=== PATIENT | female | born 1970 | race Caucasian/White ===

== ENCOUNTER 2020-07-11 11:40 | Observation (INO) | payer SELFPAY ==
[2020-07-11 11:45] VITALS: BP 131/82; PULSE 70; RESP 15; O2SAT 100; BMI 24.3
--- NOTE | 2020-07-11 13:29 | XR_ITS ---
WS: [id number] XR chest 1V portable [id number] REASON FOR EXAM: muscle cramps FINDINGS: Mild tortuosity of the thoracic aorta. Normal heart size. Calcified granulomatous disease in both hemithoraces. No active pulmonary parenchymal or pleural disease. Mild to moderate changes of degenerative spondylosis in the mid and lower thoracic spine. Dorsal colu mn stimulator at the midthoracic level. XR/XR chest 1V portable [id number] IMPRESSION:No acute chest abnormality.
--- NOTE | 2020-07-11 13:31 | ED_ITS ---
HPI - General Adult General: Chief complaint: General Medical Stated complaint: NOT FEELING WELL / MUSCLE CRAMPING Time Seen by Provider: 07/11/20 12:22 Source: patient and EMS Mode of arrival: EMS Limitations: no limitations History of Present Illness: HPI narrative: Patient is a 50-year-old female who was brought in by EMS. EMS was called and by law enforcement to evaluate this lady. She is from out of town and followed her girlfriend here. She is apparently homeless and came here from [place]. She was found sleeping in an abandoned car at the [facility]. She feels she is dehydrated. She has not been drinking water as much as she should. She is also feeling a little depressed but denies suicidal or homicidal ideation. She denies a fever. No urinary symptoms Associated symptoms: Deny dyspnea, headache(s), nausea, rash, palpitations or vomiting Review of Systems General: Reports: 10 or more systems reviewed and unremarkable except in HPI and below Const: Denies: fever(s), chills or body aches Eyes: Denies: change in vision or blurry vision ENMT: Denies: throat pain, enlarged tonsils, odynophagia, hoarseness, mouth pain or swelling of lips/tongue Card: Denies: palpitations, irregular heart rhythm, edema or swelling of feet/ankles Resp: Denies: dyspnea, productive cough or non-productive cough GI: Denies: abdominal pain, nausea or vomiting : Denies: flank pain, difficulty voiding, dysuria, urinary frequency, urinary urgency or urinary hesitancy Musc: Denies: neck pain, back pain or extremity swelling Skin/Breast: Denies: rash, pruritus or erythema Neuro: Denies: headache(s), numbness in extremities or weakness in extremities Endo: Denies: polyuria, polydipsia or tired all the time Physical Exam Const: COMMON NORMALS: no acute distress, average body habitus, patient oriented x3, no limitations, healthy appearing, alert and well nourished HENMT: COMMON NORMALS: normocephalic, atraumatic and moist oral mucous membranes HEAD & SCALP: normocephalic and atraumatic Neck/C-Spine: COMMON NORMALS: no meningeal signs and no JVD Resp: COMMON NORMALS: normal respiratory effort, No retractions, No use of accessory muscles, clear to auscultation bilaterally and percussion normal AUSCULTATION: clear to auscultation bilaterally PERCUSSION: percussion normal Cardio: COMMON NORMALS: no JVD, regular rate, regular rhythm, S1 normal heart sound present, S2 normal heart sound present, No gallops present (Cardio), No clicks present (Cardio), No murmurs present (Cardio), No rub (Cardio) and Peripheral pulses 2+ throughout RATE: regular rate RHYTHM: regular rhythm HEART SOUNDS: S1 normal heart sound present and S2 normal heart sound present PERIPHERAL PULSES: Peripheral pulses 2+ throughout GI: COMMON NORMALS: Normal to inspection, nondistended, normoactive bowel sounds present, Soft to palpation, non-tender, No hepatosplenomegaly present, no masses and no bruits PALPATION: Yes Soft to palpation and Yes No hepatosplenomegaly present Extremity: COMMON NORMALS: normal to inspection, full ROM, capillary refill normal, no calf tenderness and no pedal edema Neuro: COMMON NORMALS: patient oriented x3 SENSORIUM/ORIENTATION: Yes alert MENINGEAL SIGNS: Yes no meningeal signs Skin: COMMON NORMALS: no rashes or lesions noted, no wounds, turgor normal, no jaundice, no petechiae and no mottling GENERAL SKIN EXAM: no rashes or lesions noted and turgor normal Course Reevaluation(s): Reevaluation #1: Discussed her lab and imaging findings with her. Negative for acute findings other than mild rhabdomyolysis. She was given a liter of saline and will be discharged home. She is advised to drink plenty of fluids to keep well-hydrated. She then said that she wants a psych evaluation. When i asked why she declined to tell me, but denies suicidal or homicidal ideation. She mentioned that she is homeless and would like to be admitted to psych. Time: 17:54 Consultations: Consultation #1: Discussed the patient with Dr. Andre and he kindly accepted the patient to his service. Time: 18:04 Vital Signs: Vital signs: Vital Signs Temperature 98.0 F 07/12/20 06:00 Pulse Rate 70 07/12/20 06:00 Respiratory Rate 18 07/12/20 06:00 Blood Pressure 129/77 07/12/20 06:00 Pulse Oximetry 95 07/12/20 06:00 MDM - General Adult MDM Narrative: Medical decision making narrative: 50-year-old female patient who presents to the emergency department with nonspecific symptoms including muscle cramping and depression. Evaluation in the emergency department shows she has mild rhabdomyolysis. She however requested to be admitted to the [facility] for evaluation by psychiatrist. After discussion with the psychiatrist he agreed to admit her for evaluation but he advised that she will likely be discharged tomorrow Medical Records: Attestation: I reviewed the patient's medical records. Lab Data: Attestation: I reviewed the patient's lab results. Labs: Lab Results 07/11/20 07/11/20 07/11/20 Range/Units 14:20 14:20 14:20 WBC 10.8 H (4.0-10.0) 10^3/ uL RBC 3.82 L (4.1-5.3) 10^6/u L Hgb 11.8 (11.5-15.3) g/dL Hct 36.8 L (37.0-47.0) % MCV 96.3 (81-99) fL MCH 30.9 (28.0-34.0) pg MCHC 32.1 (30.0-36.0) g/dL RDW 12.8 (12.1-15.1) % Plt Count 291 (130-400) 10^3/c mm MPV 9.7 (7.4-10.4) fL Neut % (Auto) 72.8 % Lymph % (Auto) 19.9 % Dickenson % (Auto) 6.0 % Eos % (Auto) 0.6 % Baso % (Auto) 0.4 % Neut # (Auto) 7.89 H (1.8-7.7) 10^3/u L Lymph # (Auto) 2.2 (0.8-4.8) 10^3/u L Dickenson # (Auto) 0.7 (0.2-0.9) 10^3/u L Eos # (Auto) 0.1 (0.0-0.8) 10^3/u L Baso # (Auto) 0.0 (0.0-0.1) 10^3/u L Nucleated RBC % (a uto) 0 % Nucleated RBCs # 0.0 /100WBC Sodium 142 (136-145) mmol/L Potassium 3.4 L (3.5-5.1) mmol/L Chloride 103 (98-107) mmol/L Carbon Dioxide 24 (22-29) mmol/L Anion Gap 18.4 (5-19) BUN 11 (6-20) mg/dL Creatinine 0.6 (0.5-0.9) mg/dL GFR Calculation 105.8 (90-130) mL/min Glucose 88 (65-115) mg/dL Calculated Osmolal ity 293 (285-295) mOsm/k g Calcium 9.5 (8.5-10.5) mg/dL Total Bilirubin 0.5 (0.15-1.2) mg/dL AST 21 (0-32) U/L ALT 15 (0-33) U/L Alkaline Phosphata se 83 (35-105) IU/L Creatine Kinase 255 H (26-192) U/L C-Reactive Protein 8.3 H (0.0-4.9) mg/L Total Protein 6.7 (6.6-8.7) g/dL Albumin 4.3 (3.5-5.2) g/dL Globulin 2.4 (1.3-4.6) g/dL TSH 0.58 (0.27-4.20) uIU/ mL HCG, Qual Negative (Negative) Urine Opiates Scre en (Negative) ng/mL Acetaminophen < 5.0 L (10-30) ug/mL Ur Barbiturates Sc reen (Negative) ng/mL Ur Phencyclidine S crn (Negative) ng/mL Ur Amphetamines Sc reen (Negative) ng/mL U Benzodiazepines Scrn (Negative) ng/mL Urine Cocaine Scre en (Negative) ng/mL U Marijuana (THC) Screen (Negative) ng/mL Ethyl Alcohol < 10 (0-10) mg/dL 07/11/20 07/11/20 Range/Units 14:44 14:44 WBC (4.0-10.0) 10^3/ uL RBC (4.1-5.3) 10^6/u L Hgb (11.5-15.3) g/dL Hct (37.0-47.0) % MCV (81-99) fL MCH (28.0-34.0) pg MCHC (30.0-36.0) g/dL RDW (12.1-15.1) % Plt Count (130-400) 10^3/c mm MPV (7.4-10.4) fL Neut % (Auto) % Lymph % (Auto) % Dickenson % (Auto) % Eos % (Auto) % Baso % (Auto) % Neut # (Auto) (1.8-7.7) 10^3/u L Lymph # (Auto) (0.8-4.8) 10^3/u L Dickenson # (Auto) (0.2-0.9) 10^3/u L Eos # (Auto) (0.0-0.8) 10^3/u L Baso # (Auto) (0.0-0.1) 10^3/u L Nucleated RBC % (a uto) % Nucleated RBCs # /100WBC Sodium (136-145) mmol/L Potassium (3.5-5.1) mmol/L Chloride (98-107) mmol/L Carbon Dioxide (22-29) mmol/L Anion Gap (5-19) BUN (6-20) mg/dL Creatinine (0.5-0.9) mg/dL GFR Calculation (90-130) mL/min Glucose (65-115) mg/dL Calculated Osmolal ity (285-295) mOsm/k g Calcium (8.5-10.5) mg/dL Total Bilirubin (0.15-1.2) mg/dL AST (0-32) U/L ALT (0-33) U/L Alkaline Phosphata se (35-105) IU/L Creatine Kinase (26-192) U/L C-Reactive Protein (0.0-4.9) mg/L Total Protein (6.6-8.7) g/dL Albumin (3.5-5.2) g/dL Globulin (1.3-4.6) g/dL TSH (0.27-4.20) uIU/ mL HCG, Qual Negative (Negative) Urine Opiates Scre en Negative (Negative) ng/mL Acetaminophen (10-30) ug/mL Ur Barbiturates Sc reen Negative (Negative) ng/mL Ur Phencyclidine S crn Negative (Negative) ng/mL Ur Amphetamines Sc reen Negative (Negative) ng/mL U Benzodiazepines Scrn Negative (Negative) ng/mL Urine Cocaine Scre en Negative (Negative) ng/mL U Marijuana (THC) Screen Negative (Negative) ng/mL Ethyl Alcohol (0-10) mg/dL Imaging Data^: CXR: Attestation: I personally reviewed and interpreted this imaging study as follows: Radiologist's impression: [address] [place] [address] XRay Report Signed Patient: [place] NÚÑEZ #: [id number] : 1970Acct#:[id number] Age/Sex: 50 / FADM Date: 07/11/20 Loc: ERRoom/Bed: Attending Dr: Ordering Provider/Ordering MD: Ranulfo Lopez MD, [facility] [place] [facility] [place] of Service: 07/11/20 Procedure(s): XR chest 1V portable [id number] Accession Number(s): [id number] Report Number: [id number] WS: [id number] XR chest 1V portable [id number] REASON FOR EXAM: muscle cramps FINDINGS: Mild tortuosity of the thoracic aorta. Normal heart size. Calcified granulomatous disease in both hemithoraces. No active pulmonary parenchymal or pleural disease. Mild to moderate changes of degenerative spondylosis in the mid and lower thoracic spine. Dorsal column stimulator at the midthoracic level. XR/XR chest 1V portable [id number] IMPRESSION:No acute chest abnormality. Dictated By:Maximo Saini Jr, MD Signed By:Maximo Saini Jr MDSigned Date/Time:07/11/20 135 DD/ 135 Discharge Plan Discharge Patient Disposition: Admitted As Inpatient Admit Provider: Madan Andre Clinical Impression: Adjustment disorder with anxiety, Psychosocial distress, Homeless, Rhabdomyolysis Condition: Stable Coding Level of Care Code ED Network Support Specialist for Chg Fwd Exam Comprehensive
[2020-07-11 14:41] LABS: Basophils % 0.4 %; Eosinophils # 0.1 10^3/uL (0.0-0.8); Eosinophils % 0.6 %; Hematocrit 36.8 % (37.0-47.0); Hemoglobin 11.8 g/dL (11.5-15.3); Lymphocytes # 2.2 10^3/uL (0.8-4.8); Lymphocytes % 19.9 %; Mean Corpuscular HGB Conc 32.1 g/dL (30.0-36.0); Mean Corpuscular Hemoglobin 30.9 pg (28.0-34.0); Mean Corpuscular Volume 96.3 fL (81-99); Mean Platelet Volume 9.7 fL (7.4-10.4); Monocytes # 0.7 10^3/uL (0.2-0.9); Neutrophils # 7.89 10^3/uL (1.8-7.7); Neutrophils % 72.8 %; Nucleated Red Blood Cells % 0 %; Platelet Count 291 10^3/cmm (130-400); Red Blood Count 3.82 10^6/uL (4.1-5.3); Red Cell Distribution Width 12.8 % (12.1-15.1); White Blood Count 10.8 10^3/uL (4.0-10.0)
[2020-07-11 14:50] LABS: HCG, Serum Qual Negative (Negative)
[2020-07-11 14:50] LABS: HCG Qualitative Urine. Negative (Negative)
[2020-07-11 15:03] LABS: Amphetamines Screen Urine Negative (Negative); Barbiturates Screen Urine Negative (Negative); Benzodiazepines Screen Urine Negative (Negative); Cocaine Screen Urine Negative (Negative); Opiate Screen Urine Negative (Negative); PCP Screen Urine Negative (Negative); THC Screen Urine Negative (Negative)
[2020-07-11 15:07] LABS: Alanine Aminotransferase 15 U/L (0-33); Albumin Level 4.3 g/dL (3.5-5.2); Alkaline Phosphatase 83 IU/L (35-105); Anion Gap 18.4 (5-19); Aspartate Amino Transferase 21 U/L (0-32); Blood Urea Nitrogen 11 mg/dL (6-20); C Reactive Protein 8.3 mg/L (0.0-4.9); Calcium 9.5 mg/dL (8.5-10.5); Carbon Dioxide 24 mmol/L (22-29); Chloride 103 mmol/L (98-107); Creatine Phosphokinase 255 U/L (26-192); Creatinine Clr Calc Pharmacy 115.2508; Globulin 2.4 g/dL (1.3-4.6); Glomerular Filtration Rate 105.8 mL/min (90-130); Glucose 88 mg/dL (65-115); Osmolality Calculated 293 mOsm/kg (285-295); Potassium 3.4 mmol/L (3.5-5.1); Sodium 142 mmol/L (136-145); Thyroid Stimulating Hormone 0.58 uIU/mL (0.27-4.20); Total Bilirubin 0.5 mg/dL (0.15-1.2); Total Protein 6.7 g/dL (6.6-8.7)
[2020-07-11 15:16] LABS: Acetaminophen < 5.0 ug/mL (10-30); Alcohol Level < 10 mg/dL (0-10)
[2020-07-11] MEDS: sodium chloride 0.9% 1,000 ML 999 ML IV (16:06)
[2020-07-11 19:13] VITALS: BP 133/75; PULSE 70; RESP 15; O2SAT 100
[2020-07-11 20:35] VITALS: BP 118/82; PULSE 85; RESP 18; TEMP 36.8; O2SAT 93
[2020-07-11] MEDS: pregabalin 150 mg Capsule PO (22:08)
[2020-07-11] MEDS: TRAMadol 50 mg Tablet PO (22:08)
--- NOTE | 2020-07-11 22:15 | PC.NURSE ---
Patient is a 50-year-old female who was brought in by EMS. EMS was called and by law enforcement to evaluate this lady. She is from out of town and followed her girlfriend here. She is apparently homeless and came here from [place]. She was found sleeping in an abandoned car at the [employer].She feels she is dehydrated. She has not been drinking water as much as she should. She is also feeling a little depressed but denies suicidal or homicidal ideation.
[2020-07-12 06:00] VITALS: BP 129/77; PULSE 70; RESP 18; TEMP 36.7; O2SAT 95
[2020-07-12] MEDS: FUROsemide 20 mg Tablet PO (07:39)
[2020-07-12] MEDS: pregabalin 150 mg Capsule PO ×3 (07:40→20:21)
[2020-07-12] MEDS: duloxetine 60 mg Capsule 120 MG PO (07:40)
--- NOTE | 2020-07-12 08:16 | P.HP_ITS ---
Providers/Chief Complaint Admitting Physician: aMdan Andre MD Chief Complaint: NOT FEELING WELL / MUSCLE CRAMPING HPI NPU History of Present Illness ANTONIETTA NÚÑEZ is a 50 year old female who was brought to the emergency room by police. We have no documentation of what exactly occurred. According to the bijal hodge, she was sleeping in her car at a gas station where she was told she could do that. Through a very confusing series of events, her car was towed, her purse was in her car, her phone was in her car, and the police brought her to the emergency room for unclear reasons. She denies suicidal or homicidal ideation. She says that she is treated for stress and anxiety and is having muscle cramping. Otherwise she is negative for symptoms of depression or psychosis. Oh, can I get my Adderall? Patient's urine drug screen was negative for amphetamines. ER physician documentation: Patient is a 50-year-old female who was brought in by EMS. EMS was called and by law enforcement to evaluate this lady. She is from out of town and followed her girlfriend here. She is apparently homeless and came here from [place]. She was found sleeping in an abandoned car at the a gas station. She feels she is dehydrated. She has not been drinking water as much as she should. She is also feeling a little depressed but denies suicidal or homicidal ideation. She denies a fever. No urinary symptoms Past psychiatric history: It should be noted that the patient is not a reliable informant and we have no records on her. She says that she has been hospitalized twice for mental health reasons in her life. The last was 2 weeks ago in [facility]. She was hospitalized for stress, anxiety, and burnout. She has been treated for depression with Cymbalta for several years and it is helpful. She denies side effects and wants to continue this medication. Please see mental status exam below. Social history: Patient is incredibly vague. She answers questions but the answers are of minimal help. She is from [facility]. She first says she works at a [employer] shop and then she says she is disabled for spine and back problems. She has family in [facility] but they cannot help her in this situation so she does not feel there is any point in contacting them. She was going to visit friends here in the [place] area but she cannot remember their phone number and cannot seem to recall the names. Review of Systems Narrative: Review of Systems Constitutional: Complains of: Fatigue Eyes: Complains of: No eye symptoms ENT/Mouth: Complains of: No ENTM symptoms Cardiovascular: Complains of: No cardiac symptoms Respiratory: Complains of: No respiratory symptoms GI: Complains of: No GI symptoms Neuro: Complains of: No neuro symptoms Musculoskeletal: Complains of: Patient has vague complaint of muscle cramping but can be no more specific. Skin: Complains of: No skin symptoms Hematologic/Lymphatic: Complains of: No hematologic/lymphatic symptoms Endocrine: Complains of: No endocrine symptoms : Complains of: No symptoms Psych: Denies: Depression, Suicide ideation Meds NPU Home Medications Medication Instructions Recorded Confirmed Last Taken Type baclofen 20 mg PO QID PRN 07/11/20 07/11/20 Unknown History dextroamphetamine-amphetamine 15 mg PO .@NOON 07/11/20 07/11/20 07/09/20 History dextroamphetamine-amphetamine 20 mg PO QAM 07/11/20 07/11/20 07/09/20 History duloxetine 120 mg PO DAILY 07/11/20 07/11/20 Unknown History furosemide See Rx Instructions .ROUTE .COMPLEX 07/11/20 07/11/20 Unknown History ibuprofen 800 mg PO TID PRN 07/11/20 07/11/20 Unknown History olanzapine 2.5 mg PO BEDTIME 07/11/20 07/11/20 07/09/20 History pregabalin 150 mg PO TID 07/11/20 07/11/20 Unknown History sumatriptan succinate 25 mg PO PRN 07/11/20 07/11/20 Unknown History tramadol 50 mg PO Q6H PRN 07/11/20 07/11/20 07/09/20 History Allergies Allergy/AdvReac Type Severity Reaction Status Date / Time cephalexin [From Keflex] Allergy ALGY-Hives Verified 07/11/20 14:23 Penicillins Allergy ALGY-Hives Verified 07/11/20 14:23 Mental Status Exam MSE Comments: Discharge Mental Status Exam: The patient is an alert interperso nisha gauged female appearing approximately her stated age. She is holding her right arm as though. It is painful but makes no specific complaint. Eye contact is good. She is not believed to be a reliable informant. She is guarded but not paranoid. She gives largely approximate answers that she knows cannot be verified at this time. Her story is somewhat illogical but then the whole series of events that we can verify is difficult to understand. Appearance: hygiene is good; no gross neurological deficits., gait is unremarkable; AIMS=0 Speech: Speech is of normal rate and rhythm and easily understood. She speaks in complete sentences. She has good command of vocabulary. Thought processes: Thought processes are abstract. Judgment is adequate for safety. Associations: intact Psychotic processes: There is no indication of guarding or paranoia. There is no attention to the internal stimuli. Auditory and visual hallucinations are denied. Judgment: Insight is fair. Problem solving skills are adequate for safety. Orientation: The patient is oriented to person, place time and situation. Memory: no deficits noted in immediate, intermediate, or remote spheres. Attention: The patient is alert and interpersonally engaged. Language: Verbalizations are coherent. Fund of knowledge: Fund of knowledge is adequate. Affect/Mood: Affect is consistent with a euthymic mood. denied suicidal ideation Affective range is appropriate. Psychosis: perception unimpaired except through cognitive distortion; reality testing intact. Vitals/I&O/Wt Last Vital Signs Temp 98.0 F 07/12/20 06:00 Pulse 70 07/12/20 06:00 Resp 18 07/12/20 06:00 BP 129/77 07/12/20 06:00 Pulse Ox 95 07/12/20 06:00 Weight last 48 hrs Weight 70.307 kg Data NPU : 07/11/20 14:20 07/11/20 14:20 A&P Assessment and plan (1) Adjustment disorder with anxiety: Status: Acute (2) Psychosocial distress: Status: Acute (3) Homeless: Status: Acute Additional A&P Information It appears that this is a homeless woman that was admitted primarily for psychosocial reasons after being found sleeping in a car on a cold night before . She is able to state her needs which is to access her car so that she can get her phone and go find the people that she is looking for. For the time being, we will restart her medications and await the assistance of a social work assistance. Involuntary Hold Information 96 Hour Hold: 96 Hour Involuntary Admission: No Attestations NPU Medical Necessity Statement*: Patient remained in the hospital 1 more night dose and get her car. Coding Level of Care Code Acute Radiologist Diagnostic for Chg Fwd Diagnoses Adjustment disorder with anxiety F43.22 Psychosocial distress Z65.8 Homeless Z59.0
[2020-07-12] MEDS: FUROsemide 20 mg Tablet 10 MG PO (11:29)
[2020-07-12 14:00] VITALS: BP 105/67; PULSE 72; RESP 16; TEMP 36.6; O2SAT 94
[2020-07-12] MEDS: nicotine 2 mg Gum BUCCAL (15:30)
[2020-07-12] MEDS: acetaminophen 325 mg Tablet 650 MG PO (16:46)
[2020-07-12] MEDS: hyDROXYzine 25 mg Capsule 50 MG PO (16:47)
--- NOTE | 2020-07-12 16:47 | PC.NURSE ---
Addendum entered by Kamini Moreno LPN 07/12/20 17:33: prn med effective no further c/o anxiety Original Note: PRN VISTARIL 50 MG GIVEN PO PER PT C/O STATED ANXIETY
[2020-07-12] MEDS: TRAMadol 50 mg Tablet PO (20:21)
[2020-07-12 22:00] VITALS: BP 121/70; PULSE 68; RESP 18; TEMP 36.6; O2SAT 96
[2020-07-13 06:00] VITALS: BP 117/41; PULSE 75; RESP 16; TEMP 36.4; O2SAT 94
[2020-07-13] MEDS: pregabalin 150 mg Capsule PO (08:33)
[2020-07-13] MEDS: duloxetine 60 mg Capsule 120 MG PO (08:33)
[2020-07-13] MEDS: FUROsemide 20 mg Tablet PO (08:34)
[2020-07-13 09:00] VITALS: BP 117/41; PULSE 75; RESP 16; TEMP 36.4; O2SAT 94
--- NOTE | 2020-07-13 10:42 | P.DS_ITS ---
Diagnoses at Discharge Discharge Diagnosis (1) Adjustment disorder with anxiety: Status: Resolved (2) Psychosocial distress: Status: Acute (3) Homeless: Status: Acute Reason for Visit Reason for Visit: NOT FEELING WELL / MUSCLE CRAMPING Brief History: ANTONIETTA NÚÑEZ is a 50 year old female who was brought to the emergency room by police. We have no documentation of what exactly occurred. According to the patient, she was sleeping in her car at a gas station where she was told she could do that. Through a very confusing series of events, her car was towed, her purse was in her car, her phone was in her car, and the police brought her to the emergency room for unclear reasons. She denies suicidal or homicidal ideation. She says that she is treated for stress and anxiety and is having muscle cramping. Otherwise she is negative for symptoms of depression or psychosis. Oh, can I get my Adderall? Patient's urine drug screen was negative for amphetamines. ER physician documentation: Patient is a 50-year-old female who was brought in by EMS. EMS was called and by law enforcement to evaluate this lady. She is from out of town and followed her girlfriend here. She is apparently homeless and came here from [place]. She was found sleeping in an abandoned car at the a gas station. She feels she is dehydrated. She has not been drinking water as much as she should. She is also feeling a little depressed but denies suicidal or homicidal ideation. She denies a fever. No urinary symptoms Past psychiatric history: It should be noted that the patient is not a reliable informant and we have no records on her. She says that she has been hospitalized twice for mental health reasons in her life. The last was 2 weeks ago in [facility]. She was hospitalized for stress, anxiety, and burnout. She has been treated for depression with Cymbalta for several years and it is helpful. She denies side effects and wants to continue this medication. Please see mental status exam below. Social history: Patient is incredibly vague. She answers questions but the answers are of minimal help. She is from [facility]. She first says she works at a [employer] shop and then she says she is disabled for spine and back problems. She has family in [facility] but they cannot help her in this situation so she does not feel there is any point in contacting them. She was going to visit friends here in the [place] area but she cannot remember their phone number and cannot seem to recall the names. Hospital Course Hospital Course It appears that this is a homeless woman that was admitted primarily for psychosocial reasons after being found sleeping in a car on a cold night before . She is able to state her needs which is to access her car so that she can get her phone and go find the people that she is looking for. For the time being, we will restart her medications and await the assistance of a social work assistance. The patient was permitted to remain overnight while her car could be located over the iday weekend. Medication refills were provided. Involuntary Hold Information 96 Hour Hold: 96 Hour Involuntary Admission: No Mental Status Exam MSE Comments: Discharge Mental Status Exam: Appearance: hygiene is good; no gross neurological deficits., gait is unremarkable; AIMS=0 Speech: Speech is of normal rate and rhythm and easily understood. Thought processes: Thought processes are abstract. Judgment is adequate for safety. Associations: intact Psychotic processes: There is no indication of guarding or paranoia. There is no attention to the internal stimuli. Auditory and visual hallucinations are denied. Judgment: Insight is fair. Problem solving skills are adequate for safety. Orientation: The patient is oriented to person, place time and situation. Memory: no deficits noted in immediate, intermediate, or remote spheres. Attention: The patient is alert and interpersonally engaged. Language: Verbalizations are coherent. Fund of knowledge: Fund of knowledge is adequate. Affect/Mood: Affect is consistent with a euthymic mood. denied suicidal ideation Affective range is appropriate. Psychosis: perception unimpaired except through cognitive distortion; reality testing intact. Discharge Data Data Completed and Pending: Completed Studies During Hospitalization Category Date Time Status XR chest 1V butch ble [id number] Urgent Exams 07/11/20 13:29 Completed Vitals: Last Vital Signs Temp 97.6 F 07/13/20 09:00 Pulse 75 07/13/20 09:00 Resp 16 07/13/20 09:00 BP 117/41 07/13/20 09:00 Pulse Ox 94 07/13/20 09:00 Discharge Plan Discharge Patient Disposition: Home Condition: Stable Prescriptions: Continued sumatriptan succinate 25 mg tablet 25 mg PO PRN Qty: 10 RF: 0 olanzapine 2.5 mg tablet 2.5 mg PO BEDTIME Qty: 30 RF: 0 tramadol 50 mg tablet 50 mg PO Q6H PRN (Reason: Pain) Qty: 10 RF: 0 baclofen 20 mg tablet 20 mg PO QID PRN (Reason: Muscle Spasm) Qty: 30 RF: 0 furosemide 20 mg tablet See Rx Instructions .ROUTE .COMPLEX Qty: 30 RF: 0 duloxetine 60 mg capsule,delayed release(DR/EC) 120 mg PO DAILY Qty: 60 RF: 0 pregabalin 150 mg capsule 150 mg PO TID Qty: 90 RF: 0 Discontinued ibuprofen 800 mg tablet 800 mg PO TID PRN (Reason: Pain) RF: 0 dextroamphetamine-amphetamine 20 mg capsule,extended release 24hr 20 mg PO QAM RF: 0 dextroamphetamine-amphetamine 15 mg capsule,extended release 24hr 15 mg PO .@NOON RF: 0 Discharge Orders: Discharge Order (Routine); Ordered 07/13/20 Ordered By: Madan Andre Referrals: [place], [place] help line [Other] - 1-3 days (call for assistance with establishing outpatient mental health services. ) Patient Instructions: Depression (DC), Anxiety (DC) Activity Restrictions/Additional Instructions: in case you need assistance in the [place], [place] area until you get to your home in [place], [place] ?Call [place] [facility]: ?Call [facility]: ?Visit [facility] ? [facility] [place] (8:00 am to 4:00 pm) - [address] [place] [address] If you stay in [place] you will want to ask about follow-up care resources for outpatient mental health as soon as possible. But you said that most likely you will go to [place], [place]... Once you get to [place], [place] you could call [facility] for possible resources It is available 24 hours a day: [phone] [facility] ? [facility] [address] [place] [address] TTY: [phone] Office hours: 8:30 a.m. to 5 p.m. Thursday through Thursday Walk-in appointments for adults are available during office hours. 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
== END 2020-07-13 10:00 | disposition home or self-care (01) ==
LOC: ER 12:47 → NP 18:33
PROVIDERS: Admitting Provider Psychiatry & Neurology Psychiatry; Emergency Provider Family Medicine; Visit Provider Psychiatry & Neurology Psychiatry
DX: F43.22 Adjustment disorder with anxiety (principal); Z65.8 Other specified problems related to psychosocial circumstances; Z59.0 Homelessness
CPT/HCPCS: 12345; 71045; 80053; 80306; 80307; 81025; 82550; 84443; 84703; 85025; 86140; 99283; 99285; G0378; J7030

== ENCOUNTER 2020-07-15 12:42 | Inpatient (IN) | payer SELFPAY ==
[2020-07-15] VITALS (68 sets, daily range): BP systolic 70–185; BP diastolic 60–114; PULSE 48–78; RESP 12–20; TEMP 36.4–36.9; O2SAT 96–100; BMI 22.7
--- NOTE | 2020-07-15 13:30 | PC.NURSE ---
RSI ordered by Dr. Lopez. 1331 134/84 HR 63, 94% RA SpO2, respirations 24 1332 ETomidate 20mg administered IVP 1332 Succ 150mg administered IVP 1334 ET tube placed by Dr. Lopez 1334 ET tube CO2 detector color change present, humidification in et tube, 23 at the lip 1335 139/90, respirations 27 100% HR 75 1336 ET tube secured by RT, pt placed on ventilator
--- NOTE | 2020-07-15 13:36 | CTR_ITS ---
PROCEDURE INFORMATION: Exam: CT Cervical Spine Without Contrast Exam date and time: 07/15/2020 2:20 PM Age: 50 years old Clinical indication: Injury or trauma; Fall; Unconscious; Additional info: Fall, head injury TECHNIQUE: Imaging protocol: Computed tomography images of the cervical spine without contrast. Radiation optimization: All CT scans at this facility use at least one of these dose optimization techniques: automated exposure control; mA and/or kV adjustment per patient size (includes targeted exams where dose is matched to clinical indication); or iterative reconstruction. COMPARISON: No relevant prior studies available. RADIATION DOSE METRICS: Total DLP (mGy-cm): 443.47 FINDINGS: Bones/joints: Multilevel moderate uncovertebral and facet degenerative changes. Discs/Spinal canal/Neural foramina: There are multilevel broad-based disc osteophyte complexes which indent the anterior thecal sac and result in varying degrees of bilateral neuroforamina narrowing. Soft tissues: Unremarkable. Lungs: Lung apices are normal. CT/CT cervical spin wo con* [id number] IMPRESSION: There are degenerative changes as described above. No evidence for acute fracture. Radiation Dose CTDIVOL = (mGy): DLP = 443.47 (mGy-cm)
--- NOTE | 2020-07-15 13:36 | XRR_ITS ---
PROCEDURE INFORMATION: Exam: XR Chest, 1 View Exam date and time: 07/15/2020 1:46 PM Age: 50 years old Clinical indication: Device placement; Ett placement (vent status); Additional info: Post intubation TECHNIQUE: Imaging protocol: XR of the chest Views: 1 view. COMPARISON: CR XR chest 1V portable [id number] 07/11/2020 1:40 PM FINDINGS: Tubes, catheters and devices: An endotracheal tube is present in satisfactory position. A neurostimulator wire projects on the lower thoracic spine. Lungs: Unremarkable. No consolidation. Pleural space: Unremarkable. No pleural effusion. No pneumothorax. Heart/Mediastinum: Unremarkable. No cardiomegaly. Bones/joints: Unremarkable. XR/XR chest 1V portable [id number] IMPRESSION: 1. Satisfactory endotracheal tube position. 2. No significant cardiopulmonary abnormality.
--- NOTE | 2020-07-15 13:36 | CTR_ITS ---
PROCEDURE INFORMATION: Exam: CT Head Without Contrast Exam date and time: 07/15/2020 1:44 PM Age: 50 years old Clinical indication: Injury or trauma; Fall; Unconscious; Additional info: Head injury, loc TECHNIQUE: Imaging protocol: Computed tomography of the head without contrast. Radiation optimization: All CT scans at this facility use at least one of these dose optimization techniques: automated exposure control; mA and/or kV adjustment per patient size (includes targeted exams where dose is matched to clinical indication); or iterative reconstruction. COMPARISON: No relevant prior studies available. RADIATION DOSE METRICS: Total DLP (mGy-cm): 777.74 FINDINGS: Brain: Normal. No hemorrhage. Unremarkable white matter. No mass effect. Cerebral ventricles: No ventriculomegaly. Bones/joints: Unremarkable. No acute fracture. Paranasal sinuses: Visualized sinuses are unremarkable. No fluid levels. Mastoid air cells: Visualized mastoid air cells are well aerated. Soft tissues: There are right frontal and right periorbital abrasions with underlying soft tissue hematoma and emphysema. CT/CT head wo con* [id number] IMPRESSION: There are right frontal and right periorbital abrasions with underlying soft tissue hematoma and emphysema. Radiation Dose CTDIVOL = (mGy): DLP = 777.74 (mGy-cm)
[2020-07-15] MEDS: propofol 1,000 MG/100 ML INJ 2 MG IV (13:52)
--- NOTE | 2020-07-15 13:58 | PC.NURSE ---
1357 Vecuronium 10mg IVP administered per Dr. Lopez
[2020-07-15 14:07] LABS: Basophils # 0.1 10^3/uL (0.0-0.1); Basophils % 0.5 %; Eosinophils % 0.3 %; Hematocrit 44.8 % (37.0-47.0); Lymphocytes # 1.5 10^3/uL (0.8-4.8); Lymphocytes % 13.5 %; Mean Corpuscular HGB Conc 31.3 g/dL (30.0-36.0); Mean Corpuscular Hemoglobin 30.5 pg (28.0-34.0); Mean Corpuscular Volume 97.6 fL (81-99); Monocytes # 0.6 10^3/uL (0.2-0.9); Monocytes % 5.7 %; Neutrophils # 8.76 10^3/uL (1.8-7.7); Neutrophils % 79.7 %; Nucleated Red Blood Cells % 0 %; Platelet Count 342 10^3/cmm (130-400); Red Blood Count 4.59 10^6/uL (4.1-5.3); Red Cell Distribution Width 12.9 % (12.1-15.1)
[2020-07-15 14:19] LABS: Amphetamines Screen Urine Negative (Negative); Barbiturates Screen Urine Negative (Negative); Benzodiazepines Screen Urine Negative (Negative); Cocaine Screen Urine Negative (Negative); Opiate Screen Urine Negative (Negative); PCP Screen Urine Negative (Negative); THC Screen Urine Negative (Negative)
[2020-07-15 14:32] LABS: Urine Appearance Hazy (CLEAR); Urine Color Dark Yellow (Yellow); pH Urine 5 (5-7)
[2020-07-15 14:33] LABS: Add Urine Culture? No; Add Urine Microscopic? YES; Bacteria Urine 2+ /hpf; Bilirubin Urine Neg (Negative); Blood Urine Neg (Negative); Glucose Urine UA Norm (Normal); Ketones Urine 1+ (Negative); Leukocyte Esterase Urine Negative (Negative); Nitrate Urine Negative (Negative); Protein Urine 1+ (Negative); Specific Gravity, Urine 1.025 (1.005-1.030); Urobilinogen Urine 1 mg/dL (Negative); WBC Urine 0-4 /hpf (0-5)
[2020-07-15 14:41] LABS: Alanine Aminotransferase 18 U/L (0-33); Albumin Level 5.1 g/dL (3.5-5.2); Alkaline Phosphatase 104 IU/L (35-105); Anion Gap 16.7 (5-19); Aspartate Amino Transferase 14 U/L (0-32); Blood Urea Nitrogen 8 mg/dL (6-20); C Reactive Protein 2.1 mg/L (0.0-4.9); Calcium 10.6 mg/dL (8.5-10.5); Carbon Dioxide 32 mmol/L (22-29); Chloride 101 mmol/L (98-107); Globulin 2.9 g/dL (1.3-4.6); Glomerular Filtration Rate 88.6 mL/min (90-130); Glucose 118 mg/dL (65-115); Osmolality Calculated 297 mOsm/kg (285-295); Potassium 5.7 mmol/L (3.5-5.1); Sodium 144 mmol/L (136-145); Total Bilirubin 0.3 mg/dL (0.15-1.2)
[2020-07-15 14:48] LABS: HCG, Serum Qual Negative (Negative)
[2020-07-15 14:49] LABS: Acetaminophen < 5.0 ug/mL (10-30); Alcohol Level < 10 mg/dL (0-10); Salicylate < 0.3 mg/dL (3-10)
[2020-07-15 14:51] LABS: Blood Gas Allen Test Pos; Blood Gas Operator Identificat GD; Blood Gas Sample Site Radial, right; Blood Gas Sample Type Arterial; Blood Gas Tidal Volume 0.45; Carboxyhemoglobin 2.2 %THgb (0.4-20.1); Methemoglobin 0.7 % (0.4-1.5); Oxygen Device VENT; Potassium Level - ABG 3.4 mmol/L (3.5-5.0)
[2020-07-15 14:53] LABS: ABG PCO2 38.6 mmHg (35-45); ABG PH Result 7.48 (7.35-7.45); Alveolar-Arterial Oxygen Gradi 3.8 mmHg (5-10); Arterial Blood Gas Hematocrit 39.7 % (37-47); Base Excess ABG 4.7 mmol/L (-2.0-2.0); HCO3 ABG 28.5 mmol/L (22-26); HGB O2 Sat 96.8 % (95-100); Ionized Calcium Level - ABG 1.2 mmol/L (1.1-1.4); Oxygen Saturation ABG 99.7; Total Hemoglobin 12.9 g/dL (12-16)
--- NOTE | 2020-07-15 15:19 | PC.NURSE ---
OG tube placed per Dr. Lopez order. MD notified of placement. OG tube secured.
--- NOTE | 2020-07-15 16:09 | CTR_ITS ---
PROCEDURE INFORMATION: Exam: CT Angiography Head With Contrast Exam date and time: 07/15/2020 4:23 PM Age: 50 years old Clinical indication: Injury or trauma; Blunt trauma; Head; Patient HX: Fall, unresponsive, L hemiplegia; Additional info: Left hemiplegia TECHNIQUE: Imaging protocol: Computed tomography angiography of the head with intravenous contrast. 3D rendering (Not supervised by radiologist): MIP and/or 3D reconstructed images were created by the technologist. Radiation optimization: All CT scans at this facility use at least one of these dose optimization techniques: automated exposure control; mA and/or kV adjustment per patient size (includes targeted exams where dose is matched to clinical indication); or iterative reconstruction. Contrast material: OMNI 350; Contrast volume: 95 ml; Contrast route: INTRAVENOUS (IV); COMPARISON: CT head wo con* [id number] 07/15/2020 2:04 PM RADIATION DOSE METRICS: Total DLP (mGy-cm): 1962.04 FINDINGS: ANTERIOR CIRCULATION: Right internal carotid artery: Unremarkable. Intracranial segment is patent with no significant stenosis. No aneurysm. Right middle cerebral artery: Unremarkable. No occlusion or significant stenosis. No aneurysm. Right anterior cerebral artery: Unremarkable. No occlusion or significant stenosis. No aneurysm. Left internal carotid artery: Unremarkable. Intracranial segment is patent with no significant stenosis. No aneurysm. Left middle cerebral artery: Unremarkable. No occlusion or significant stenosis. No aneurysm. Left anterior cerebral artery: Unremarkable. No occlusion or significant stenosis. No aneurysm. POSTERIOR CIRCULATION: Right vertebral artery: Unremarkable. No occlusion or significant stenosis. No aneurysm. Left vertebral artery: Unremarkable. No occlusion or significant stenosis. No aneurysm. Basilar artery: Unremarkable. No occlusion or significant stenosis. No aneurysm. Right posterior cerebral artery: Normal variant origin. No occlusion or significant stenosis. No aneurysm. Left posterior cerebral artery: Normal variant origin. No occlusion or significant stenosis. No aneurysm. Brain: No definite mass, mass effect, or midline shift. Cerebral ventricles: No ventriculomegaly. Bones/joints: Unremarkable. No acute fracture. Soft tissues: Unremarkable. IMPRESSION: No large vessel stenosis or occlusion. PROCEDURE INFORMATION: Exam: CT Angiography Neck With Contrast Exam date and time: 07/15/2020 4:23 PM Age: 50 years old Clinical indication: Injury or trauma; Blunt trauma; Head; Patient HX: Fall, unresponsive, L hemiplegia; Additional info: Left hemiplegia TECHNIQUE: Imaging protocol: Computed tomography angiography of the neck with intravenous contrast. 3D rendering (Not supervised by radiologist): MIP and/or 3D reconstructed images were created by the technologist. Radiation optimization: All CT scans at this facility use at least one of these dose optimization techniques: automated exposure control; mA and/or kV adjustment per patient size (includes targeted exams where dose is matched to clinical indication); or iterative reconstruction. Contrast material: OMNI 350; Contrast volume: 95 ml; Contrast route: INTRAVENOUS (IV); COMPARISON: CT head wo con* [id number] 07/15/2020 2:04 PM RADIATION DOSE METRICS: Total DLP (mGy-cm): 1961.04 FINDINGS: Right common carotid artery: No stenosis. No dissection or occlusion. Right internal carotid artery: No stenosis of the extracranial segment. No dissection or occlusion. Right external carotid artery: No occlusion or stenosis of the origin. Right vertebral artery: No stenosis. No dissection or occlusion. Left common carotid artery: No stenosis. No dissection or occlusion. Left internal carotid artery: No stenosis of the extracranial segment. No dissection or occlusion. Left external carotid artery: No occlusion or stenosis of the origin. Left vertebral artery: No stenosis. No dissection or occlusion. Bones/joints: No acute fracture. Soft tissues: There is an ET tube and NG tube in place. No significant soft tissue swelling. CT/CT angio headneck* [id number] IMPRESSION: No stenosis or occlusion. REFERENCES: NASCET CRITERIA. The degree of internal carotid artery stenosis is based on NASCET criteria. Normal is no stenosis. Mild is less than 50% stenosis. Moderate is 50-69% stenosis. Severe is 70% to 99% stenosis. Total occlusion is no detectable patent lumen. Radiation Dose CTDIVOL = (mGy): DLP = 1962.04~2.04 (mGy-cm)
[2020-07-15] MEDS: HYDROmorphone 1 mg/mL INJ 1 mL IVP ×2 (16:32→19:07)
--- NOTE | 2020-07-15 16:34 | XRR_ITS ---
PROCEDURE INFORMATION: Exam: XR Chest, 1 View Exam date and time: 07/15/2020 4:51 PM Age: 50 years old Clinical indication: Device placement; Ng tube; Additional info: Ng tube placement TECHNIQUE: Imaging protocol: XR of the chest Views: 1 view. COMPARISON: CR XR chest 1V portable [id number] 07/15/2020 1:38 PM FINDINGS: Tubes, catheters and devices: ET tube tip projects 4.0 cm superior to the antonella. Distal fenestration of the G-tube is positioned in the left upper quadrant in the expected location of the stomach fundus or body. Lungs: Unremarkable. No consolidation. Pleural space: Unremarkable. No pleural effusion. No pneumothorax. Heart/Mediastinum: Unremarkable. No cardiomegaly. Bones/joints: Unremarkable. XR/XR chest 1V portable [id number] IMPRESSION: 1. ET tube tip projects 4.0 cm superior to the antonella. 2. Distal fenestration of the G-tube is positioned in the left upper quadrant in the expected location of the stomach fundus or body.
[2020-07-15 16:37] LABS: SARS Covid-2 Antigen Negative (Negative)
[2020-07-15] MEDS: iohexol 350 mg/mL 100 mL Btl IV (16:49)
--- NOTE | 2020-07-15 16:52 | ECG_ITS ---
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
[2020-07-15 18:01] LABS: Troponin(5th) Baseline 6 ng/L (0-10)
--- NOTE | 2020-07-15 18:03 | PC.NURSE ---
Attempted to call report to ICU. was told to wait and give report to shift supervisor film processing. ER charge nurse notified.
--- NOTE | 2020-07-15 19:24 | PC.NURSE ---
pt report called to ICU to Krystal CASILLAS in SBAR format.
[2020-07-15 19:55] LABS: Troponin 5 2HR Delta 0 ABS# (0-10)
[2020-07-15] MEDS: sodium chloride 0.9% 1,000 ML 125 ML IV (21:57)
[2020-07-15] MEDS: atorvastatin 40 mg Tablet 80 MG PO (21:57)
[2020-07-15] MEDS: clopidogrel 75 mg Tablet PO (21:58)
[2020-07-15] MEDS: enoxaparin 40 mg/0.4 mL Syringe SUBCUT (21:58)
[2020-07-15] MEDS: propofol 1,000 MG/100 ML INJ 17.8 MG IV (22:14)
--- NOTE | 2020-07-15 22:52 | ECG_ITS ---
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
[2020-07-15] MEDS: aspirin 81 mg Chew Tablet PO (22:57)
--- NOTE | 2020-07-15 23:14 | ED_ITS ---
HPI - Altered Mental Status General: Chief Complaint: Altered Mental Status Stated Complaint: AMS Time Seen by Provider: 07/15/20 12:46 Source: EMS Mode of arrival: EMS Limitations: altered mental status History of Present Illness: HPI narrative: This 50-year-old female is unresponsive and unable to give me history. From what I can gather from EMS the patient was found unresponsive by a neighbor earlier today. They thought that she may have been drinking last night. She apparently has a history of alcohol abuse. When she was found today she had a cut on her head was not responding, and so was brought to the emergency department for evaluation. I was unable to obtain more history than this. Review of Systems General: Reports: ROS unobtainable due to mental status PFSH ED PFSH: Medical History Adjustment disorder with anxiety Homeless Psychosocial distress Physical Exam Const: EXAM LIMITATIONS: altered mental status ORIENTATION/CONSCIOUSNESS: Yes patient obtunded HENMT: COMMON NORMALS: normocephalic HEAD & SCALP: normocephalic, abrasion and laceration (1 cm laceration in her right supraorbital region laterally) Eye: COMMON NORMALS: Equal, round and reactive pupils present and conjunctivae normal GENERAL EYE: appearance normal, both eyes and all related structures CONJUNCTIVA: Yes conjunctivae normal PUPIL: Yes Equal, round and reactive pupils present Chest: COMMONS NORMALS: normal inspection of the chest Resp: EFFORT & INSPECTION: Yes grunting AUSCULTATION: no crackles, no rales, no rhonchi, no wheezes, breath sounds present and diminished lung sounds Cardio: COMMON NORMALS: regular rate, regular rhythm, S1 normal heart sound present and S2 normal heart sound present RATE: regular rate RHYTHM: regular rhythm HEART SOUNDS: S1 normal heart sound present and S2 normal h eart sound present GI: COMMON NORMALS: Normal to inspection, nondistended, normoactive bowel sounds present, Soft to palpation and non-tender PALPATION: Yes Soft to palpation Extremity: COMMON NORMALS: normal to inspection Neuro: STACY COMA SCALE: document GCS findings [place] coma scale eye opening: To pressure [place] coma scale verbal response: None Stacy coma scale motor response: Localising Stacy coma scale total score: 8 OTHER: The santa ent is not moving her left upper and lower extremities. Urinary Catheter Management^: [place]: Cath Placed During This Visit: yes Reason for Continuing Indwelling Catheter: Accurate Measurement of Urinary Output in Critically Ill Patients Urinary Catheter Date of Insertion: 07/15/20 Urinary Catheter Time of Insertion: 15:27 Procedures Intubation Time out performed: Yes sedative: Etomidate Mg Given: 20 paralytic: Succinylcholine Mg Given: 120 Laryngoscope: Rohan Assist Device Used: other (Begin laryngoscopy) ET Tube Size: 8 ET Tube Uncuffed: Yes Tube Secured Depth (cm): 23 Tube Secured Location: lips Tube Placement Confirmation: visualized tube passing through cords, equal breath sounds bilaterally, no breath sounds over epigastrium and confirmation by capnometry Patient Tolerated Procedure: well Intubation Complications: none Course ED course: 50-year-old female patient who was brought in unresponsive by EMS. On arrival her [place] Coma Scale was 8 and a decision was made to emergently intubate her especially as there was suspicion of alcohol intoxication and she had a head injury as evidenced by a laceration above her right eye. She was also having grunting respirations on arrival. She was emergently intubated, and she was also observed not to move the left side of her body raising concerns for a CVA. As we are unable to obtain any history about this patient the etiology of her current state is hard to decipher. Differentials include a CVA with left hemiplegia, seizure with Jesus's paralysis, some other encephalopathic illness. Since her last known well was the day before and her head CT and CTA were negative the neurologist at [facility] in [place] did not feel they had any additional thing that they could offer to her that we do not have here. If she had had a large vessel CVA they would have accepted her for thrombectomy. She is therefore admitted to the ICU for further evaluation and management Vital Signs: Vital signs: Vital Signs Temperature 98.4 F 07/15/20 22:00 Pulse Rate 54 L 07/15/20 20:30 Respiratory Rate 12 07/15/20 20:41 Blood Pressure 151/94 07/15/20 20:30 Pulse Oximetry 98 07/15/20 20:30 MDM - Altered Mental Status MDM Narrative: Medical decision making narrative: This unfortunate 50-year-old female who seems to have a hard life and was recently admitted to our neuropsychiatric unit was brought in today unresponsive from a hotel room. Last known well was yesterday and no one is sure what happened. She did have a right supraorbital laceration. Head CT and CTA were negative. Other imaging findings were also negative. On arrival her GCS was 8 and she was having grunting respirations so she was emergently intubated and mechanically ventilated. Drug screen and alcohol levels were negative. She has left hemiplegia so there is concern that she may have had a significant CVA. No obvious seizure activity is noted in the emergency department. She is admitted to the ICU for further evaluation and management Differential Diagnosis: Differential diagnosis altered mental status: Likely alcoholic intoxication, altered mental status, delirium, hypoglycemia and subarachnoid hemorrhage Medical Records: Attestation: I reviewed the patient's medical records. Lab Data: Attestation: I reviewed the patient's lab results. Labs: Lab Results 07/15/20 07/15/20 07/15/20 Range/Units 12:46 12:46 12:46 WBC 11.0 H (4.0-10.0) 10^3/ uL RBC 4.59 (4.1-5.3) 10^6/u L Hgb 14.0 (11.5-15.3) g/dL Hct 44.8 (37.0-47.0) % MCV 97.6 (81-99) fL MCH 30.5 (28.0-34.0) pg MCHC 31.3 (30.0-36.0) g/dL RDW 12.9 (12.1-15.1) % Plt Count 342 (130-400) 10^3/c mm MPV 10.0 (7.4-10.4) fL Neut % (Auto) 79.7 % Lymph % (Auto) 13.5 % Swisher % (Auto) 5.7 % Eos % (Auto) 0.3 % Baso % (Auto) 0.5 % Neut # (Auto) 8.76 H (1.8-7.7) 10^3/u L Lymph # (Auto) 1.5 (0.8-4.8) 10^3/u L Swisher # (Auto) 0.6 (0.2-0.9) 10^3/u L Eos # (Auto) 0.0 (0.0-0.8) 10^3/u L Baso # (Auto) 0.1 (0.0-0.1) 10^3/u L Nucleated RBC % (a uto) 0 % Nucleated RBCs # 0.0 /100WBC Specimen Type Sample Site ABG pH (7.35-7.45) ABG pCO2 (35-45) mmHg ABG pO2 (80.0-100.0) mmH g ABG HCO3 (22-26) mmol/L ABG O2 Saturation ABG Base Excess (-2.0-2.0) mmol/ L Marvin Test A-a O2 Gradient (5-10) mmHg Hematocrit (37-47) % Hgb O2 Saturation (95-100) % Carboxyhemoglobin (0.4-20.1) %THgb Methemoglobin (0.4-1.5) % Total Hemoglobin (12-16) g/dL Ionized Calcium (1.1-1.4) mmol/L O2 Delivery Device Mechanical Rate FiO2 % Tidal Volume PEEP cmH20 Manager Hospice ID Sodium 144 (136-145) mmol/L Potassium 5.7 H (3.5-5.1) mmol/L Chloride 101 (98-107) mmol/L Carbon Dioxide 32 H (22-29) mmol/L Anion Gap 16.7 (5-19) BUN 8 (6-20) mg/dL Creatinine 0.7 (0.5-0.9) mg/dL GFR Calculation 88.6 L (90-130) mL/min Glucose 118 H (65-115) mg/dL Calculated Osmolal ity 297 H (285-295) mOsm/k g Lactic Acid (0.5-2.2) mmol/L Lactate Calcium 10.6 H (8.5-10.5) mg/dL Total Bilirubin 0.3 (0.15-1.2) mg/dL AST 14 (0-32) U/L ALT 18 (0-33) U/L Alkaline Phosphata se 104 (35-105) IU/L Troponin T Baselin e (0-10) ng/L C-Reactive Protein 2.1 (0.0-4.9) mg/L Total Protein 8.0 (6.6-8.7) g/dL Albumin 5.1 (3.5-5.2) g/dL Globulin 2.9 (1.3-4.6) g/dL HCG, Qual Negative (Negative) Urine Color (Yellow) Urine Appearance (CLEAR) Urine pH (5-7) Ur Specific Gravit y (1.005-1.030) Urine Protein (Negative) Urine Glucose (UA) (Normal) Urine Ketones (Negative) Urine Blood (Negative) Urine Nitrate (Negative) Urine Bilirubin (Negative) Urine Urobilinogen (Negative) mg/dL Ur Leukocyte Taylor ase (Negative) Urine RBC (0-2) /hpf Urine WBC (0-5) /hpf Ur Squamous Epith Cells (0-5) /hpf Amorphous Sediment Urine Bacteria (NONE) /hpf Salicylates < 0.3 L (3-10) mg/dL Urine Opiates Scre en (Negative) ng/mL Acetaminophen < 5.0 L (10-30) ug/mL Ur Barbiturates Sc reen (Negative) ng/mL Ur Phencyclidine S crn (Negative) ng/mL Ur Amphetamines Sc reen (Negative) ng/mL U Benzodiazepines Scrn (Negative) ng/mL Urine Cocaine Scre en (Negative) ng/mL U Marijuana (THC) Screen (Negative) ng/mL Ethyl Alcohol < 10 (0-10) mg/dL SARS-CoV-2 Ag (Rap id) (Negative) 07/15/20 07/15/20 07/15/20 Range/Units 12:54 12:54 14:35 WBC (4.0-10.0) 10^3/ uL RBC (4.1-5.3) 10^6/u L Hgb (11.5-15.3) g/dL Hct (37.0-47.0) % MCV (81-99) fL MCH (28.0-34.0) pg MCHC (30.0-36.0) g/dL RDW (12.1-15.1) % Plt Count (130-400) 10^3/c mm MPV (7.4-10.4) fL Neut % (Auto) % Lymph % (Auto) % Swisher % (Auto) % Eos % (Auto) % Baso % (Auto) % Neut # (Auto) (1.8-7.7) 10^3/u L Lymph # (Auto) (0.8-4.8) 10^3/u L Swisher # (Auto) (0.2-0.9) 10^3/u L Eos # (Auto) (0.0-0.8) 10^3/u L Baso # (Auto) (0.0-0.1) 10^3/u L Nucleated RBC % (a uto) % Nucleated RBCs # /100WBC Specimen Type Arterial Sample Site Radial, right ABG pH 7.48 H (7.35-7.45) ABG pCO2 38.6 (35-45) mmHg ABG pO2 134.0 H (80.0-100.0) mmH g ABG HCO3 28.5 H (22-26) mmol/L ABG O2 Saturation 99.7 ABG Base Excess 4.7 H (-2.0-2.0) mmol/ L Marvin Test Pos A-a O2 Gradient 3.8 L (5-10) mmHg Hematocrit 39.7 (37-47) % Hgb O2 Saturation 96.8 (95-100) % Carboxyhemoglobin 2.2 (0.4-20.1) %THgb Methemoglobin 0.7 (0.4-1.5) % Total Hemoglobin 12.9 (12-16) g/dL Ionized Calcium 1.2 (1.1-1.4) mmol/L O2 Delivery Device Vent Mechanical Rate 14.0 FiO2 30.0 % Tidal Volume 0.45 PEEP 5.0 cmH20 Manager Hospice ID Gd Sodium 146.0 H (136-145) mmol/L Potassium 3.4 L (3.5-5.1) mmol/L Chloride (98-107) mmol/L Carbon Dioxide (22-29) mmol/L Anion Gap (5-19) BUN (6-20) mg/dL Creatinine (0.5-0.9) mg/dL GFR Calculation (90-130) mL/min Glucose 118.0 H (65-115) mg/dL Calculated Osmolal ity (285-295) mOsm/k g Lactic Acid (0.5-2.2) mmol/L Lactate Calcium (8.5-10.5) mg/dL Total Bilirubin (0.15-1.2) mg/dL AST (0-32) U/L ALT (0-33) U/L Alkaline Phosphata se (35-105) IU/L Troponin T Baselin e (0-10) ng/L C-Reactive Protein (0.0-4.9) mg/L Total Protein (6.6-8.7) g/dL Albumin (3.5-5.2) g/dL Globulin (1.3-4.6) g/dL HCG, Qual (Negative) Urine Color Dark yellow (Yellow) Urine Appearance Hazy A (CLEAR) Urine pH 5 (5-7) Ur Specific Gravit y 1.025 (1.005-1.030) Urine Protein 1+ H (Negative) Urine Glucose (UA) Norm (Normal) Urine Ketones 1+ H (Negative) Urine Blood Neg (Negative) Urine Nitrate Negative (Negative) Urine Bilirubin Neg (Negative) Urine Urobilinogen 1 H (Negative) mg/dL Ur Leukocyte Taylor ase Negative (Negative) Urine RBC None (0-2) /hpf Urine WBC 0-4 H (0-5) /hpf Ur Squamous Epith Cells 10-15 H (0-5) /hpf Amorphous Sediment Not Reportable Urine Bacteria 2+ H (NONE) /hpf Salicylates (3-10) mg/dL Urine Opiates Scre en Negative (Negative) ng/mL Acetaminophen (10-30) ug/mL Ur Barbiturates Sc reen Negative (Negative) ng/mL Ur Phencyclidine S crn Negative (Negative) ng/mL Ur Amphetamines Sc reen Negative (Negative) ng/mL U Benzodiazepines Scrn Negative (Negative) ng/mL Urine Cocaine Scre en Negative (Negative) ng/mL U Marijuana (THC) Screen Negative (Negative) ng/mL Ethyl Alcohol (0-10) mg/dL SARS-CoV-2 Ag (Rap id) (Negative) 07/15/20 07/15/20 07/15/20 Range/Units 15:35 16:27 17:32 WBC (4.0-10.0) 10^3/ uL RBC (4.1-5.3) 10^6/u L Hgb (11.5-15.3) g/dL Hct (37.0-47.0) % MCV (81-99) fL MCH (28.0-34.0) pg MCHC (30.0-36.0) g/dL RDW (12.1-15.1) % Plt Count (130-400) 10^3/c mm MPV (7.4-10.4) fL Neut % (Auto) % Lymph % (Auto) % Swisher % (Auto) % Eos % (Auto) % Baso % (Auto) % Neut # (Auto) (1.8-7.7) 10^3/u L Lymph # (Auto) (0.8-4.8) 10^3/u L Swisher # (Auto) (0.2-0.9) 10^3/u L Eos # (Auto) (0.0-0.8) 10^3/u L Baso # (Auto) (0.0-0.1) 10^3/u L Nucleated RBC % (a uto) % Nucleated RBCs # /100WBC Specimen Type Sample Site ABG pH (7.35-7.45) ABG pCO2 (35-45) mmHg ABG pO2 (80.0-100.0) mmH g ABG HCO3 (22-26) mmol/L ABG O2 Saturation ABG Base Excess (-2.0-2.0) mmol/ L Marvin Test A-a O2 Gradient (5-10) mmHg Hematocrit (37-47) % Hgb O2 Saturation (95-100) % Carboxyhemoglobin (0.4-20.1) %THgb Methemoglobin (0.4-1.5) % Total Hemoglobin (12-16) g/dL Ionized Calcium (1.1-1.4) mmol/L O2 Delivery Device Mechanical Rate FiO2 % Tidal Volume PEEP cmH20 Manager Hospice ID Sodium (136-145) mmol/L Potassium (3.5-5.1) mmol/L Chloride (98-107) mmol/L Carbon Dioxide (22-29) mmol/L Anion Gap (5-19) BUN (6-20) mg/dL Creatinine (0.5-0.9) mg/dL GFR Calculation (90-130) mL/min Glucose (65-115) mg/dL Calculated Osmolal ity (285-295) mOsm/k g Lactic Acid (0.5-2.2) mmol/L Lactate Cancelled Calcium (8.5-10.5) mg/dL Total Bilirubin (0.15-1.2) mg/dL AST (0-32) U/L ALT (0-33) U/L Alkaline Phosphata se (35-105) IU/L Troponin T Baselin e 6 (0-10) ng/L C-Reactive Protein (0.0-4.9) mg/L Total Protein (6.6-8.7) g/dL Albumin (3.5-5.2) g/dL Globulin (1.3-4.6) g/dL HCG, Qual (Negative) Urine Color (Yellow) Urine Appearance (CLEAR) Urine pH (5-7) Ur Specific Gravit y (1.005-1.030) Urine Protein (Negative) Urine Glucose (UA) (Normal) Urine Ketones (Negative) Urine Blood (Negative) Urine Nitrate (Negative) Urine Bilirubin (Negative) Urine Urobilinogen (Negative) mg/dL Ur Leukocyte Taylor ase (Negative) Urine RBC (0-2) /hpf Urine WBC (0-5) /hpf Ur Squamous Epith Cells (0-5) /hpf Amorphous Sediment Urine Bacteria (NONE) /hpf Salicylates (3-10) mg/dL Urine Opiates Scre en (Negative) ng/mL Acetaminophen (10-30) ug/mL Ur Barbiturates Sc reen (Negative) ng/mL Ur Phencyclidine S crn (Negative) ng/mL Ur Amphetamines Sc reen (Negative) ng/mL U Benzodiazepines Scrn (Negative) ng/mL Urine Cocaine Scre en (Negative) ng/mL U Marijuana (THC) Screen (Negative) ng/mL Ethyl Alcohol (0-10) mg/dL SARS-CoV-2 Ag (Rap id) Negative (Negative) 07/15/20 Range/Units 17:32 WBC (4.0-10.0) 10^3/ uL RBC (4.1-5.3) 10^6/u L Hgb (11.5-15.3) g/dL Hct (37.0-47.0) % MCV (81-99) fL MCH (28.0-34.0) pg MCHC (30.0-36.0) g/dL RDW (12.1-15.1) % Plt Count (130-400) 10^3/c mm MPV (7.4-10.4) fL Neut % (Auto) % Lymph % (Auto) % Swisher % (Auto) % Eos % (Auto) % Baso % (Auto) % Neut # (Auto) (1.8-7.7) 10^3/u L Lymph # (Auto) (0.8-4.8) 10^3/u L Swisher # (Auto) (0.2-0.9) 10^3/u L Eos # (Auto) (0.0-0.8) 10^3/u L Baso # (Auto) (0.0-0.1) 10^3/u L Nucleated RBC % (a uto) % Nucleated RBCs # /100WBC Specimen Type Sample Site ABG pH (7.35-7.45) ABG pCO2 (35-45) mmHg ABG pO2 (80.0-100.0) mmH g ABG HCO3 (22-26) mmol/L ABG O2 Saturation ABG Base Excess (-2.0-2.0) mmol/ L Marvin Test A-a O2 Gradient (5-10) mmHg Hematocrit (37-47) % Hgb O2 Saturation (95-100) % Carboxyhemoglobin (0.4-20.1) %THgb Methemoglobin (0.4-1.5) % Total Hemoglobin (12-16) g/dL Ionized Calcium (1.1-1.4) mmol/L O2 Delivery Device Mechanical Rate FiO2 % Tidal Volume PEEP cmH20 Manager Hospice ID Sodium (136-145) mmol/L Potassium (3.5-5.1) mmol/L Chloride (98-107) mmol/L Carbon Dioxide (22-29) mmol/L Anion Gap (5-19) BUN (6-20) mg/dL Creatinine (0.5-0.9) mg/dL GFR Calculation (90-130) mL/min Glucose (65-115) mg/dL Calculated Osmolal ity (285-295) mOsm/k g Lactic Acid 1.0 (0.5-2.2) mmol/L Lactate Calcium (8.5-10.5) mg/dL Total Bilirubin (0.15-1.2) mg/dL AST (0-32) U/L ALT (0-33) U/L Alkaline Phosphata se (35-105) IU/L Troponin T Baselin e (0-10) ng/L C-Reactive Protein (0.0-4.9) mg/L Total Protein (6.6-8.7) g/dL Albumin (3.5-5.2) g/dL Globulin (1.3-4.6) g/dL HCG, Qual (Negative) Urine Color (Yellow) Urine Appearance (CLEAR) Urine pH (5-7) Ur Specific Gravit y (1.005-1.030) Urine Protein (Negative) Urine Glucose (UA) (Normal) Urine Ketones (Negative) Urine Blood (Negative) Urine Nitrate (Negative) Urine Bilirubin (Negative) Urine Urobilinogen (Negative) mg/dL Ur Leukocyte Taylor ase (Negative) Urine RBC (0-2) /hpf Urine WBC (0-5) /hpf Ur Squamous Epith Cells (0-5) /hpf Amorphous Sediment Urine Bacteria (NONE) /hpf Salicylates (3-10) mg/dL Urine Opiates Scre en (Negative) ng/mL Acetaminophen (10-30) ug/mL Ur Barbiturates Sc reen (Negative) ng/mL Ur Phencyclidine S crn (Negative) ng/mL Ur Amphetamines Sc reen (Negative) ng/mL U Benzodiazepines Scrn (Negative) ng/mL Urine Cocaine Scre en (Negative) ng/mL U Marijuana (THC) Screen (Negative) ng/mL Ethyl Alcohol (0-10) mg/dL SARS-CoV-2 Ag (Rap id) (Negative) Imaging Data^: Other CT: Radiologist's impression: [address] [address] [address] Scan Report Signed Patient: Rene Rudolph #: [id number] : 1970Acct#:[id number] Age/Sex: 50 / FADM Date: 07/15/20 Loc: ERRoom/Bed: Attending Dr: Ordering Provider/Ordering MD: Ranulfo Lopez [place], [facility] [place] Service: 07/15/20 Procedure(s): CT cervical spin wo con* [id number] Accession Number(s): [id number] Report Number: [id number] PROCEDURE INFORMATION: Exam: CT Cervical Spine Without Contrast Exam date and time: 07/15/2020 2:20 PM Age: 50 years old Clinical indication: Injury or trauma; Fall; Unconscious; Additional info: Fall, head injury TECHNIQUE: Imaging protocol: Computed tomography images of the cervical spine without contrast. Radiation optimization: All CT scans at this facility use at least one of these dose optimization techniques: automated exposure control; mA and/or kV adjustment per patient size (includes targeted exams where dose is matched to clinical indication); or iterative reconstruction. COMPARISON: No relevant prior studies available. RADIATION DOSE METRICS: Total DLP (mGy-cm): 443.47 FINDINGS: Bones/joints: Multilevel moderate uncovertebral and facet degenerative changes. Discs/Spinal canal/Neural foramina: There are multilevel broad-based disc osteophyte complexes which indent the anterior thecal sac and result in varying degrees of bilateral neuroforamina narrowing. Soft tissues: Unremarkable. Lungs: Lung apices are normal. CT/CT cervical spin wo con* [id number] IMPRESSION: There are degenerative changes as described above. No evidence for acute fracture. Radiation Dose CTDIVOL = (mGy): DLP = 443.47 (mGy-cm) Dictated By:Mariah Reyes MD Signed By:Mariah Reyes MDSigned Date/Time:07/15/201441 DD/ [address] [place] [address] CT Scan Report Signed Patient: Rene Rudolph #: [id number] : 1970Acct#:[id number] Age/Sex: 50 / FADM Date: 07/15/20 Loc: ERRoom/Bed: Attending Dr: Ordering Provider/Ordering MD: Ranulfo Lopez MD, [facility] [place] of Service: 07/15/20 Procedure(s): CT angio headneck* [id number] Accession Number(s): [id number] Report Number: [id number] PROCEDURE INFORMATION: Exam: CT Angiography Head With Contrast Exam date and time: 07/15/2020 4:23 PM Age: 50 years old Clinical indication: Injury or trauma; Blunt trauma; Head; Patient HX: Fall, unresponsive, L hemiplegia; Additional info: Left hemiplegia TECHNIQUE: Imaging protocol: Computed tomography angiography of the head with intravenous contrast. 3D rendering (Not supervised by radiologist): MIP and/or 3D reconstructed images were created by the technologist. Radiation optimization: All CT scans at this facility use at least one of these dose optimization techniques: automated exposure control; mA and/or kV adjustment per patient size (includes targeted exams where dose is matched to clinical indication); or iterative reconstruction. Contrast material: OMNI 350; Contrast volume: 95 ml; Contrast route: INTRAVENOUS (IV); COMPARISON: CT head wo con* [id number] 07/15/2020 2:04 PM RADIATION DOSE METRICS: Total DLP (mGy-cm): 2.04 FINDINGS: ANTERIOR CIRCULATION: Right internal carotid artery: Unremarkable. Intracranial segment is patent with no significant stenosis. No aneurysm. Right middle cerebral artery: Unremarkable. No occlusion or significant stenosis. No aneurysm. Right anterior cerebral artery: Unremarkable. No occlusion or significant stenosis. No aneurysm. Left internal carotid artery: Unremarkable. Intracranial segment is patent with no significant stenosis. No aneurysm. Left middle cerebral artery: Unremarkable. No occlusion or significant stenosis. No aneurysm. Left anterior cerebral artery: Unremarkable. No occlusion or significant stenosis. No aneurysm. POSTERIOR CIRCULATION: Right vertebral artery: Unremarkable. No occlusion or significant stenosis. No aneurysm. Left vertebral artery: Unremarkable. No occlusion or significant stenosis. No aneurysm. Basilar artery: Unremarkable. No occlusion or significant stenosis. No aneurysm. Right posterior cerebral artery: Normal variant origin. No occlusion or significant stenosis. No aneurysm. Left posterior cerebral artery: Normal variant origin. No occlusion or significant stenosis. No aneurysm. Brain: No definite mass, mass effect, or midline shift. Cerebral ventricles: No ventriculomegaly. Bones/joints: Unremarkable. No acute fracture. Soft tissues: Unremarkable. IMPRESSION: No large vessel stenosis or occlusion. PROCEDURE INFORMATION: Exam: CT Angiography Neck With Contrast Exam date and time: 07/15/2020 4:23 PM Age: 50 years old Clinical indication: Injury or trauma; Blunt trauma; Head; Patient HX: Fall, unresponsive, L hemiplegia; Additional info: Left hemiplegia TECHNIQUE: Imaging protocol: Computed tomography angiography of the neck with intravenous contrast. 3D rendering (Not supervised by radiologist): MIP and/or 3D reconstructed images were created by the technologist. Radiation optimization: All CT scans at this facility use at least one of these dose optimization techniques: automated exposure control; mA and/or kV adjustment per patient size (includes targeted exams where dose is matched to clinical indication); or iterative reconstruction. Contrast material: OMNI 350; Contrast volume: 95 ml; Contrast route: INTRAVENOUS (IV); COMPARISON: CT head wo con* [id number] 07/15/2020 2:04 PM RADIATION DOSE METRICS: Total DLP (mGy-cm): 196.04 FINDINGS: Right common carotid artery: No stenosis. No dissection or occlusion. Right internal carotid artery: No stenosis of the extracranial segment. No dissection or occlusion. Right external carotid artery: No occlusion or stenosis of the origin. Right vertebral artery: No stenosis. No dissection or occlusion. Left common carotid artery: No stenosis. No dissection or occlusion. Left internal carotid artery: No stenosis of the extracranial segment. No dissection or occlusion. Left external carotid artery: No occlusion or stenosis of the origin. Left vertebral artery: No stenosis. No dissection or occlusion. Bones/joints: No acute fracture. Soft tissues: There is an ET tube and NG tube in place. No significant soft tissue swelling. CT/CT angio headneck* [id number] IMPRESSION: No stenosis or occlusion. REFERENCES: NASCET CRITERIA. The degree of internal carotid artery stenosis is based on NASCET criteria. Normal is no stenosis. Mild is less than 50% stenosis. Moderate is 50-69% stenosis. Severe is 70% to 99% stenosis. Total occlusion is no detectable patent lumen. Radiation Dose CTDIVOL = (mGy): DLP = 1962.04~2.04 (mGy-cm) Dictated By:Mariah Reyes MD Signed By:Mariah Reyes MDSigned Date/Time:07/15/201703 DD/ 02 CXR: Attestation: I personally reviewed and interpreted this imaging study as follows: Radiologist's impression: [address] [place] [address] XRay Report Signed Patient: Rene Rudolph #: [id number] : 1970Acct#:[id number] Age/Sex: 50 / FADM Date: 07/15/20 Loc: ERRoom/Bed: Attending Dr: Ordering Provider/Ordering MD: Ranulfo Lopez MD, [facility] [place] of Service: 07/15/20 Procedure(s): XR chest 1V portable [id number] Accession Number(s): [id number] Report Number: [id number] PROCEDURE INFORMATION: Exam: XR Chest, 1 View Exam date and time: 07/15/2020 4:51 PM Age: 50 years old Clinical indication: Device placement; Ng tube; Additional info: Ng tube placement TECHNIQUE: Imaging protocol: XR of the chest Views: 1 view. COMPARISON: CR XR chest 1V portable [id number] 07/15/2020 1:38 PM FINDINGS: Tubes, catheters and devices: ET tube tip projects 4.0 cm superior to the antonella. Distal fenestration of the G-tube is positioned in the left upper quadrant in the expected location of the stomach fundus or body. Lungs: Unremarkable. No consolidation. Pleural space: Unremarkable. No pleural effusion. No pneumothorax. Heart/Mediastinum: Unremarkable. No cardiomegaly. Bones/joints: Unremarkable. XR/XR chest 1V portable [id number] IMPRESSION: 1. ET tube tip projects 4.0 cm superior to the antonella. 2. Distal fenestration of the G-tube is positioned in the left upper quadrant in the expected location of the stomach fundus or body. Dictated By:Mariah Reyes MD Signed By:Mariah Reyes MDSigned Date/Time:07/15/201706 DD/ 06 CT Head: Radiologist's impression: [address] [address] [address] Scan Report Signed Patient: Rene Rudolph #: [id number] : 1970Acct#:[id number] Age/Sex: 50 / FADM Date: 07/15/20 Loc: ERRoom/Bed: Attending Dr: Ordering Provider/Ordering MD: Ranulfo Lopez [place] [facility] [place] Service: 07/15/20 Procedure(s): CT head wo con* [id number] Accession Number(s): [id number] Report Number: [id number] PROCEDURE INFORMATION: Exam: CT Head Without Contrast Exam date and time: 07/15/2020 1:44 PM Age: 50 years old Clinical indication: Injury or trauma; Fall; Unconscious; Additional info: Head injury, loc TECHNIQUE: Imaging protocol: Computed tomography of the head without contrast. Radiation optimization: All CT scans at this facility use at least one of these dose optimization techniques: automated exposure control; mA and/or kV adjustment per patient size (includes targeted exams where dose is matched to clinical indication); or iterative reconstruction. COMPARISON: No relevant prior studies available. RADIATION DOSE METRICS: Total DLP (mGy-cm): 777.74 FINDINGS: Brain: Normal. No hemorrhage. Unremarkable white matter. No mass effect. Cerebral ventricles: No ventriculomegaly. Bones/joints: Unremarkable. No acute fracture. Paranasal sinuses: Visualized sinuses are unremarkable. No fluid levels. Mastoid air cells: Visualized mastoid air cells are well aerated. Soft tissues: There are right frontal and right periorbital abrasions with underlying soft tissue hematoma and emphysema. CT/CT head wo con* [id number] IMPRESSION: There are right frontal and right periorbital abrasions with underlying soft tissue hematoma and emphysema. Radiation Dose CTDIVOL = (mGy): DLP = 777.74 (mGy-cm) Dictated By:Mariah Reyes MD Signed By:Mariah Reyes MDSigned Date/Time:07/15/201437 DD/ 36 EKG Data^: EKG 1: Attestation: I personally reviewed and interpreted this EKG as follows: EKG interpretation date: 07/15/20 EKG interpretation time: 17:17 Prior EKG tracings: not available for review Interpretation: Sinus bradycardia. Heart rate 53 bpm. Normal axis. No ST changes. Critical Care Time Critical Care Time: Critical Care Time: Yes Total Critical Care Time: 120 Attestation: This case had a high probability of a clinically significant, sudden, or life threatening deterioration of this patient's condition which required my full and direct attention, intervention and personal management. Discharge Plan Discharge Patient Disposition: Admitted As Inpatient Admit Provider: Kvng Rapp Clinical Impression: CVA (cerebral vascular accident), AMS (altered mental status), Left hemiplegia Condition: Stable Coding Level of Care Code ED Milk Delivery Driver for Arabella Jimenez
[2020-07-15 23:50] LABS: Ammonia 31 umol/L (11-51)
[2020-07-15 23:51] LABS: Troponin 5 6HR Delta 0 ng/L (0-12)
[2020-07-16] VITALS (74 sets, daily range): BP systolic 92–161; BP diastolic 58–96; PULSE 51–98; RESP 12–29; TEMP 36.9–37.2; O2SAT 94–100
[2020-07-16] LABS: Procalcitonin 0.02 ng/mL (0-0.5); Prolactin 16.76 ng/mL (4.8-23.3)
[2020-07-16 00:11] LABS: C Reactive Protein 3.3 mg/L (0.0-4.9)
--- NOTE | 2020-07-16 00:32 | PC.NURSE ---
Pt admitted from ED to ICU at 1945 on ventilator, sedated. Pt arousable verbally. Withdraws from pain in all extremities. Pt's mom called, her name is Kristin Alefrederick [phone].
[2020-07-16 01:15] LABS: Erythrocyte Sedimentation Rate 14 mm/hr (0-15)
[2020-07-16 03:33] LABS: Basophils % 0.4 %; Eosinophils # 0.1 10^3/uL (0.0-0.8); Eosinophils % 1.7 %; Hematocrit 34.8 % (37.0-47.0); Hemoglobin 10.8 g/dL (11.5-15.3); Lymphocytes % 23.7 %; Mean Corpuscular Hemoglobin 30.3 pg (28.0-34.0); Mean Corpuscular Volume 97.5 fL (81-99); Mean Platelet Volume 9.3 fL (7.4-10.4); Monocytes # 0.6 10^3/uL (0.2-0.9); Monocytes % 7.5 %; Neutrophils % 66.5 %; Nucleated Red Blood Cells % 0 %; Platelet Count 241 10^3/cmm (130-400); Red Blood Count 3.57 10^6/uL (4.1-5.3); Red Cell Distribution Width 13.2 % (12.1-15.1); White Blood Count 8.3 10^3/uL (4.0-10.0)
[2020-07-16 03:47] LABS: INR 1.04 (0.8-1.2); Partial Thromboplastin Time 27.2 SECONDS (23.9-36.7)
[2020-07-16 03:54] LABS: Fibrinogen 285 mg/dL (174-498)
[2020-07-16 03:59] LABS: Lactic Sepsis W/Reflex 0.8 mmol/L (0.5-2.2)
[2020-07-16 04:05] LABS: Estmated Average Glucose 88; Hemoglobin A1C 4.7 % (4.0-6.0)
[2020-07-16 04:11] LABS: NT Pro B Type Natriuretic Pept 72 pg/mL (0-125); Procalcitonin 0.03 ng/mL (0-0.5)
[2020-07-16 04:25] LABS: Alanine Aminotransferase 11 U/L (0-33); Albumin Level 3.8 g/dL (3.5-5.2); Alkaline Phosphatase 82 IU/L (35-105); Anion Gap 14.4 (5-19); Aspartate Amino Transferase 9 U/L (0-32); Blood Urea Nitrogen 12 mg/dL (6-20); C Reactive Protein 5.3 mg/L (0.0-4.9); Calcium 9.1 mg/dL (8.5-10.5); Carbon Dioxide 26 mmol/L (22-29); Chloride 108 mmol/L (98-107); Chol HDL Ratio 2.26 mg/dL (0.0-4.40); Cholesterol 138 mg/dL (0-200); Creatine Phosphokinase 35 U/L (26-192); Ferritin 34 ng/mL (15-150); Globulin 2.3 g/dL (1.3-4.6); Glomerular Filtration Rate 105.8 mL/min (90-130); Glucose 102 mg/dL (65-115); HDL Cholesterol 61 mg/dL (60-100); LDL Cholesterol Calculated 56 mg/dL (50-129); LDL HDL Ratio 0.92 RATIO (0.00-3.22); Magnesium 2.1 mg/dL (1.7-2.3); Osmolality Calculated 300 mOsm/kg (285-295); Phosphorus 3.6 mg/dL (2.5-4.5); Potassium 3.4 mmol/L (3.5-5.1); Sodium 145 mmol/L (136-145); Total Bilirubin 0.4 mg/dL (0.15-1.2); Total Protein 6.1 g/dL (6.6-8.7); Triglycerides 107 mg/dL (0-150)
[2020-07-16 05:41] LABS: ABG PCO2 45.4 mmHg (35-45); ABG PH Result 7.43 (7.35-7.45); Base Excess ABG 4.8 mmol/L (-2.0-2.0); Blood Gas Allen Test Pos; Blood Gas Sample Site Radial, right; Blood Gas Sample Type Arterial; HCO3 ABG 29.9 mmol/L (22-26); Oxygen Device VENT
[2020-07-16] MEDS: sodium chloride 0.9% 1,000 ML 125 ML IV (05:56)
--- NOTE | 2020-07-16 08:41 | PC.RESP ---
extubated pt extubated and placed on 2lpm nc
--- NOTE | 2020-07-16 08:43 | PC.NURSE ---
Addendum entered by Sheyla Caceres RN 07/16/20 08:49: Pt flailing around. Original Note: Pt extubated to 2lpm/NC. OG removed. Pt follows commands most of the time, sometimes it is delayed.
--- NOTE | 2020-07-16 08:46 | PC.NURSE ---
Witnessed with SONJA Carrion waste of Fentanyl 63 ml.
--- NOTE | 2020-07-16 08:47 | PC.NURSE ---
Propofol gtt wasted: 22ml. Fentanyl gtt wasted :63ml. Witnessed by Meseret Doe RN.
[2020-07-16] MEDS: pantoprazole 40 mg SDV IVP (09:29)
--- NOTE | 2020-07-16 09:29 | PC.CHAP ---
Pastoral Care Encounter/Spiritual Assessment Type of Contact [] Declined transport pilot visit [] Patient/Family/Request visit [] Outpatient visit [] Follow-up visit [] Physician referral [] Code/Alert [] Routine visit [] Staff referral [] Actively dying [] Patient sleeping [] Family support [] [] Out of room [] Palliative care [] [] Receiving care in room [] Pre-surgical visit [] Trauma [] Long length of stay [] ICU visit [] Other: Relational/Emotional Strength [] Patient feels connected with others/family/visitors/staff [] Distress [] Loneliness/isolation [] Abandonment Spirituality of Patient [] Person of Melva [] Attends Religious of their Melva [] Believes in Prayer [] Reads Bible or Temple materials [] There are Spiritual issues to be addressed Gravity Meter Observer Interventions [x] Prayer [] Active listening [] Non-anxious presence [] Spiritual/emotional support [] Crisis/trauma care [] Spiritual counseling [] Bereavement support [] Provided bereavement packet [] Provided Bible/devotional materials [] Provided toy/stuffed animal, coloring book to patient or family member [] Provided Communion [] Anointing/[place] [] Salvation [x] Completed spiritual assessment [] Other: Impact on Illness or Injury [] Angry [] Fearful [] Anxious [] Often cries [] Exhaustion [] Unable to work [] Unable to attend latter day [] Unable to walk/stand [] Unable to read [] Unable to drive [] Unable to eat/drink [] Unable to sleep [] Unable to be with family [] Patient intubated [] Other: Summary Time spent with patient
[2020-07-16] MEDS: clopidogrel 75 mg Tablet PO (09:32)
[2020-07-16] MEDS: aspirin 81 mg Chew Tablet PO (09:32)
--- NOTE | 2020-07-16 09:53 | PC.NURSE ---
Repeated lip smacking and tongue darting out noted.
--- NOTE | 2020-07-16 09:57 | PC.NURSE ---
After reviewing previous admission medications versus outside external pharmacy links it does not appear that pt had prescriptions filled.
--- NOTE | 2020-07-16 10:10 | PC.NURSE ---
Addendum entered by Sheyla Caceres RN 07/16/20 10:26: She has Factor V Original Note: Pt's mother: Kristin Munroe: [phone]. called to check on pt. Update given. Mother stated She has made sense for about a year. She is a drug addict. We are estranged. For the last month she is talking to people not there and saying people were going to kill her. She has been leaving notes for her roommate saying her boyfriend was trying to kill her and she has been talking to people not there. She has done several years of hard drugs, crack cocaine one of them.
--- NOTE | 2020-07-16 10:43 | PC.NURSE ---
Pt has older nerve stimulator located lower right back. Per her mother pt had surgery on her tailbone and it was broken, had a stimulator implanted this is her second one. MRI notified, MRI cancelled, Dr Rapp notified.
--- NOTE | 2020-07-16 11:00 | PC.NURSE ---
Admission assessment completed;director of managed services portion: pt evaded answering questions about persons live with her . She just kept repeating Not needy
[2020-07-16] MEDS: cyanocobalamin 1,000 mcg Tablet 1000 MCG PO (13:06)
[2020-07-16] MEDS: thiamine 100 mg Tablet PO (13:06)
[2020-07-16] MEDS: multivitamin therapeutic Tablet 1 TAB PO (13:06)
[2020-07-16] MEDS: folic acid 1 mg Tablet PO (13:06)
--- NOTE | 2020-07-16 14:54 | PM.PN ---
Subjective Subjective: Interval history: This morning patient was examined, she is breathing over the vent, moving all upper and lower extremities, following commands, she was successfully extubated to 2 L, seen after extubation multiple times She follows commands such as squeezing my fingers, wiggling her toes, follows neurologic testing, but at times becomes confused, she knows her name, she knows the date, she knows where she is from, but when asked what her daughter's names is she keeps repeating her own name, she requires multiple redirections, she has no particular complaints, when asked where she physically or sexually abused she denies, she often lips max, sticks out her tongue, is quite restless at times, she has a spinal stimulator, unfortunately cannot do an MRI, according to mom she has factor V Leiden, has a history of alcohol and drug abuse Vitals/I&O/Wt Last Vital Signs Temp 98.4 F 07/16/20 13:00 Pulse 67 07/16/20 14:00 Resp 18 07/16/20 14:00 BP 141/78 07/16/20 14:00 Pulse Ox 98 07/16/20 12:00 07/15/20 07/16/20 07/16/20 22:59 06:59 14:59 Intake Total 175.516 / 040.516 8071.434 / 1437.117 830.650 / 830.650 Output Total 350 / 350 425 / 775 Balance -174.484 / -174.317 836.434 / 662.117 830.650 / 830.650 Weight last 48 hrs Weight 65.771 kg Physical Exam Const: COMMON NORMALS: no acute distress and alert EXAM LIMITATIONS: altered mental status GENERAL APPEARANCE: cooperative ORIENTATION/CONSCIOUSNESS: Yes awake, Yes oriented to person and Yes confused; not oriented to place and not oriented to time HENMT: COMMON NORMALS: normocephalic HEAD & SCALP: normocephalic OTHER: Right frontal facial abrasion Eye: COMMON NORMALS: Equal, round and reactive pupils present PUPIL: Yes Equal, round and reactive pupils present Neck/C-Spine: COMMON NORMALS: full ROM, no lymphadenopathy and no JVD Lymph: LYMPHATIC: no lymphadenopathy noted Chest: COMMONS NORMALS: normal inspection of the chest Resp: COMMON NORMALS: normal respiratory effort, No retractions, No use of accessory muscles and clear to auscultation bilaterally AUSCULTATION: clear to auscultation bilaterally Cardio: COMMON NORMALS: no JVD, regular rate, regular rhythm, S1 normal heart sound present and S2 normal heart sound present RATE: regular rate RHYTHM: regular rhythm HEART SOUNDS: S1 normal heart sound present and S2 normal heart sound present GI: COMMON NORMALS: Normal to inspection, nondistended, normoactive bowel sounds present, Soft to palpation, non-tender and No hepatosplenomegaly present PALPATION: Yes Soft to palpation and Yes No hepatosplenomegaly present Extremity: COMMON NORMALS: normal to inspection, full ROM, capillary refill normal, no calf tenderness and no pedal edema Neuro: COMMON NORMALS: CN's II-XII intact bilaterally, moves all extremities and no focal motor deficits SENSORIUM/ORIENTATION: Yes alert, Yes oriented to person, No oriented to place and No oriented to time COORDINATION/BALANCE: No [id number] test normal (She does not know how to participate in this test) SPEECH: abnormal speech Details: garbled and stuttering MOTOR EXAM: 5/5 motor strength present throughout COORDINATION: [id number] test abnormal (She does not know how to participate in this test) Psych: APPEARANCE: Yes unkempt ATTITUDE: Yes Withdrawn affect present and Yes bizarre ACTIVITY/MOTOR BEHAVIOR: Yes psychomotor agitation, Yes fidgeting, Yes disorganized behavior and Yes restless SPEECH: Yes slow and Yes Pressured speech present MOOD & AFFECT: Yes depressed mood and Yes anxious THOUGHT PROCESS: incoherent ATTENTION/CONCENTRATION: Yes attention grossly impaired MEMORY/COGNITION: Yes memory grossly impaired Urinary Catheter Management^: [place]ja: Cath Placed During This Visit: yes Reason for Continuing Indwelling Catheter: Accurate Measurement of Urinary Output in Critically Ill Patients Urinary Catheter Date of Insertion: 07/15/20 Urinary Catheter Time of Insertion: 15:27 Data : 07/16/20 03:17 07/16/20 03:17 Micro: Microbiology 07/15/20 13:50 Gram Stain - Final Sputum - Endotracheal Tube Aspirate Sputum Culture - Preliminary 07/15/20 23:21 Blood Culture - Preliminary Blood SPECIMEN COLLECTED 07/15/20 23:18 Blood Culture - Preliminary Blood SPECIMEN COLLECTED A&P Assessment and plan (1) CVA (cerebral vascular accident): -No focal neurologic deficit is detected currently, more stuttering of her speech and rather than slurring, no facial droop -Was intubated in the ER, she could not protect her airway, extubated, saturating in the high 90s on 2 L -No known contacts, no known family members, next kin is Pina [phone] -Ct head Brain: Normal. No hemorrhage. Unremarkable white matter. No mass effect. Cerebral ventricles: No ventriculomegaly. Bones/joints: Unremarkable. No acute fracture. Paranasal sinuses: Visualized sinuses are unremarkable. No fluid levels. Mastoid air cells: Visualized mastoid air cells are well aerated. Soft tissues: There are right frontal and right periorbital abrasions with underlying soft tissue hematoma and emphysema. -cta head and neck shows: Right common carotid artery: No stenosis. No dissection or occlusion. Right internal carotid artery: No stenosis of the extracranial segment. No dissection or occlusion. Right external carotid artery: No occlusion or stenosis of the origin. Right vertebral artery: No stenosis. No dissection or occlusion. Left common carotid artery: No stenosis. No dissection or occlusion. Left internal carotid artery: No stenosis of the extracranial segment. No dissection or occlusion. Left external carotid artery: No occlusion or stenosis of the origin. Left vertebral artery: No stenosis. No dissection or occlusion. Bones/joints: No acute fracture. Soft tissues: There is an ET tube and NG tube in place. No significant soft tissue swelling. -Chest x-ray no focal pneumonia -CT cervical spine no acute fracture -EKG no acute ST-T wave changes, A. fib events -Neurologist at [facility] e contacted, by Dr. Lopez, as time of wellbeing was unknown, they cannot offer any thrombectomy or clot -Unfortunately cannot do an MRI as she has a neurostimulator in place -Mother does say that she abuses drugs, drinks alcohol -Currently she does have evidence of a catheter, tardive dyskinesia PLAN: -Continue oxygen therapy 2 L -Full code -Next of kin Pina, and now mom -Protonix -DVT prophylaxis Lovenox -Sputum cultures, blood cultures, UA urine cultures -Zosyn for aspiration pneumonia coverage -Aspirin, statin, stop Plavix due to high risk of bleeding with Xarelto -Normal saline 125 cc an hour -Folic acid, B12, thiamine -[facility] protocol -Neurochecks -Head of bed elevation -Monitor for seizures -Start Cogentin for tardive dyskinesia -Once medically cleared, will move over to psychiatric service Status: Acute Qualifiers: CVA mechanism: unspecified Qualified Code(s): I63.9 - Cerebral infarction, unspecified (2) Psychosocial distress: Status: Acute (3) Adjustment disorder with anxiety: Status: Acute (4) AMS (altered mental status): Status: Acute Qualifiers: Altered mental status type: coma Coma depth: Stacy coma 3-8 Coma timing: in the field (EMT or ambulance) Qualified Code(s): R40.2431 - Stacy coma scale score 3-8, in the field [EMT or ambulance] (5) Greater saphenous vein embolism: -Superficial thrombus in the left greater saphenous vein below the knee -Risk factors include history of factor V Leiden, thrombus involving the greater saphenous vein -We will start anticoagulation with Xarelto for 45 days Status: Acute (6) Tardive dyskinesia: Status: Acute (7) Akathisia: Status: Acute (8) Alcohol abuse: Status: Acute Attestations Medical Necessity Statement*: Patient requires hospitalization for possible stroke, altered mental status, tardive dyskinesia, ataxia, alcohol withdrawal Coding Level of Care Code Acute Safety And Security Manager for [facility] Fwd Diagnoses CVA (cerebral vascular accident) I63.9 CVA mechanism: unspecified Psychosocial distress Z65.8 Adjustment disorder with anxiety F43.22 AMS (altered mental status) R40.2431 Altered mental status type: coma Coma depth: River coma 3-8 Coma timing: in the field (EMT or ambulance) Greater saphenous vein embolism I82.819 Tardive dyskinesia G24.01 Akathisia G25.71 Alcohol abuse F10.10
[2020-07-16] MEDS: benztropine 1 mg Tablet 0.5 MG PO (15:31)
[2020-07-16] MEDS: sodium chloride 0.9% 1,000 ML 100 ML IV (15:35)
--- NOTE | 2020-07-16 18:41 | PC.NURSE ---
Shift summary: Pt alert and oriented to self and place. She is wide-eyed most of the time.. she did say she heard voices but did not want to discuss what they were saying. She was tearful at one point. She has spent the day after being extubated alternating watching TV and resting with eyes closed. She has extrapyramidal symptoms of tongue darting and lip smacking. She also bobs her head around. VSS. Afebrile She has a laceration on right eyebrow. Her right eye is puffy and pink, probably going to blacken some. She states it is very sore. She has been pleasant and follows most directions, not fully understanding at times.
--- NOTE | 2020-07-16 19:29 | PC.NURSE ---
Report given to SONJA Hernandez.
[2020-07-16] MEDS: atorvastatin 40 mg Tablet 80 MG PO (20:01)
--- NOTE | 2020-07-16 20:21 | USCV_ITS ---
RonniMaddi osorio Age: 50 Gender: F : 1970 Exam Date: 07/16/2020 06:28 Ordering Phys: Kvng Rapp MD Technologist: Merlyn Abernathy [place] [facility] [place]: SOB HISTORY: SOB PROCEDURES: Venous duplex imaging was performed in bilateral lower extremities. The following venous structures were evaluated: common femoral vein, profunda vein, proximal portion of the greater saphenous vein, superficial femoral vein, and the popliteal vein. In addition, the posterior tibial and peroneal trunk were evaluated. Serial compression, augmentation maneuvers, and spectral Doppler flow evaluation were performed. FINDINGS: No evidence of DVT seen in any vessel visualized at this time. There appears to be thrombus in the greater saphenous below the knee CONCLUSIONS Superficial thrombus in the LEFT GSV below the knee No evidence of right lower extremity DVT. No evidence of left lower extremity DVT. Mazin Jeter MD (Electronically Signed) Final Date: 16 July 2020 10:49 S
--- NOTE | 2020-07-16 20:21 | USCV_ITS ---
Maddi Rudolph Age: 50 Gender: F : 1970 Exam Date: 07/16/2020 06:40 Ordering Phys: Kvng Rapp MD Technologist: Merlyn Abernathy Exam Location: [facility] [place] Indication: SOB BP: 136 / 79 HR: 51 Rhythm: Sinus Technical Quality: Adequate MEASUREMENTS (Male / Female) Normal Values 2D ECHO LV Diastolic Diameter PLAX 4.3 cm 4.2 - 5.9 / 3.9 - 5.3 cm LV Systolic Diameter PLAX 3.1 cm LV Chamber Size 4.3 cm IVS Diastolic Thickness 1.1 cm 0.6 - 1.0 / 0.6 - 0.9 cm IVS Systolic Thickness 1.3 cm LVPW Diastolic Thickness 1.9 cm 0.6 - 1.0 / 0.6 - 0.9 cm LVPW Systolic Thickness 2.2 cm RV Chamber Size 2.3 cm LVOT Diameter 2.0 cm LV Ejection Fraction 2D Teich 56.0 % LV Ejection Fraction MOD 2C 52.1 % LV Ejection Fraction 2C AL 52.5 % LA Diameter 2.9 cm LA Width 3.1 cm LA Height 4.0 cm RA Width 2.2 cm RA Height 4.0 cm Aorta at Sinotubular Diameter 3.4 cm M-MODE LV Diastolic Diameter MM 5.1 cm 4.2 - 5.9 / 3.9 - 5.3 cm LV Systolic Diameter MM 3.9 cm LV Ejection Fraction MM Teich 47.7 % IVS Diastolic Thickness MM 0.8 cm 0.6 - 1.0 / 0.6 - 0.9 cm IVS Systolic Thickness MM 1.1 cm LVPW Diastolic Thickness MM 1.0 cm 0.6 - 1.0 / 0.6 - 0.9 cm LVPW Systolic Thickness MM 1.3 cm Aortic Annulus Diameter 3.6 cm LA Ao Ratio MM 0.9 MV E Point Septal Separation 0.6 cm DOPPLER AV Peak Velocity 131.0 cm/s LVOT Peak Velocity 123.0 cm/s AV Area Cont Eq vti 2.5 cm squared AV Area Cont Eq pk 2.9 cm squared MV Area PHT 3.5 cm squared Mitral E to A Ratio 1.1 MV E' Velocity 52.0 cm/s Mitral E to MV E' Ratio 7.9 Mitral E to LV E' Lateral Ratio 7.1 Mitral E to LV E' Septal Ratio 8.8 TR Peak Velocity 261.3 cm/s TR Peak Gradient 27.3 mmHg TV Peak E Velocity 56.0 cm/s Right Atrial Pressure 15.0 mmHg Pulmonary Artery Systolic Pressu 42.3 mmHg PV Peak Velocity 55.0 cm/s RV Acceleration Time 0.3 s RV Ejection Time 0.4 s RV AcT/ET 0.6 FINDINGS Left Ventricle Mild diffuse hypokinesia of the septum and anteroseptal segments. LV ejection fraction around 50%. Mild concentric left renal hypertrophy.Grade II/IV diastolic dysfunction, moderately elevated filling pressures. Right Ventricle The right ventricle is normal in size and function. Right Atrium The right atrium is normal in size. Left Atrium The left atrium is normal in size. Mitral Valve No gross abnormalities noted Aortic Valve No gross abnormalities noted Tricuspid Valve No gross abnormalities noted Pulmonic Valve Pulmonic valve not well visualized. Pericardium Normal pericardium without effusion. Aorta The aortic root is supple with a normal size. CONCLUSIONS Mild diffuse hypokinesia of the septum and anteroseptal segments. LV ejection fraction around 50%. Mild concentric left renal hypertrophy Grade II/IV diastolic dysfunction, moderately elevated filling pressures. There is no pericardial effusion. There are no intracardiac masses. No previous study is available for comparison. Dr Buck Tsai MD FACC (Electronically Signed) Final Date: 16 July 2020 18:54 S
[2020-07-17] VITALS (17 sets, daily range): BP systolic 131–155; BP diastolic 79–95; PULSE 64–92; RESP 12–25; TEMP 36.9–37.3; O2SAT 94–100
[2020-07-17] MEDS: sodium chloride 0.9% 1,000 ML 100 ML IV (02:31)
[2020-07-17 04:21] LABS: Basophils % 0.3 %; Eosinophils # 0.1 10^3/uL (0.0-0.8); Eosinophils % 2.2 %; Hematocrit 35.3 % (37.0-47.0); Hemoglobin 11.2 g/dL (11.5-15.3); Lymphocytes # 1.9 10^3/uL (0.8-4.8); Lymphocytes % 30.1 %; Mean Corpuscular HGB Conc 31.7 g/dL (30.0-36.0); Mean Corpuscular Hemoglobin 30.7 pg (28.0-34.0); Mean Corpuscular Volume 96.7 fL (81-99); Mean Platelet Volume 9.8 fL (7.4-10.4); Monocytes # 0.5 10^3/uL (0.2-0.9); Monocytes % 7.4 %; Neutrophils % 59.7 %; Nucleated Red Blood Cells % 0 %; Platelet Count 236 10^3/cmm (130-400); Red Blood Count 3.65 10^6/uL (4.1-5.3); Red Cell Distribution Width 12.6 % (12.1-15.1); White Blood Count 6.4 10^3/uL (4.0-10.0)
[2020-07-17 04:47] LABS: Alanine Aminotransferase 11 U/L (0-33); Albumin Level 3.8 g/dL (3.5-5.2); Alkaline Phosphatase 86 IU/L (35-105); Anion Gap 15.1 (5-19); Aspartate Amino Transferase 11 U/L (0-32); Blood Urea Nitrogen 7 mg/dL (6-20); Calcium 8.8 mg/dL (8.5-10.5); Carbon Dioxide 25 mmol/L (22-29); Chloride 106 mmol/L (98-107); Globulin 2.1 g/dL (1.3-4.6); Glomerular Filtration Rate 130.6 mL/min (90-130); Glucose 90 mg/dL (65-115); Osmolality Calculated 294 mOsm/kg (285-295); Phosphorus 3.2 mg/dL (2.5-4.5); Potassium 3.1 mmol/L (3.5-5.1); Sodium 143 mmol/L (136-145); Total Bilirubin 0.6 mg/dL (0.15-1.2); Total Protein 5.9 g/dL (6.6-8.7)
[2020-07-17 04:48] LABS: Creatine Phosphokinase 39 U/L (26-192)
[2020-07-17] MEDS: folic acid 1 mg Tablet PO (08:33)
[2020-07-17] MEDS: rivaroxaban 10 mg Tablet PO (08:33)
[2020-07-17] MEDS: aspirin 81 mg Chew Tablet PO (08:33)
[2020-07-17] MEDS: thiamine 100 mg Tablet PO (08:33)
[2020-07-17] MEDS: duloxetine 60 mg Capsule 120 MG PO (08:34)
[2020-07-17] MEDS: cyanocobalamin 1,000 mcg Tablet 1000 MCG PO (08:34)
[2020-07-17] MEDS: potassium chloride ER 20 mEq Tablet 40 MEQ PO (08:34)
[2020-07-17] MEDS: pantoprazole 40 mg SDV IVP (08:35)
[2020-07-17] MEDS: multivitamin therapeutic Tablet 1 TAB PO (08:35)
--- NOTE | 2020-07-17 09:36 | PC.CHAP ---
Pastoral Care Encounter/Spiritual Assessment Type of Contact [] Declined wildlife veterinarian visit [] Patient/Family/Request visit [] Outpatient visit [] Follow-up visit [] Physician referral [] Code/Alert [x] Routine visit [] Staff referral [] Actively dying [] Patient sleeping [] Family support [] [] Out of room [] Palliative care [] [] Receiving care in room [] Pre-surgical visit [] Trauma [] Long length of stay [] ICU visit [] Other: Relational/Emotional Strength [] Patient feels connected with others/family/visitors/staff [] Distress [] Loneliness/isolation [] Abandonment Spirituality of Patient [] Person of Melva [] Attends Christianity of their [place]va [] Believes in Prayer [] Reads Bible or Religion materials [] There are Spiritual issues to be addressed Primary Counselor Interventions [x] Prayer [] Active listening [] Non-anxious presence [] Spiritual/emotional support [] Crisis/trauma care [] Spiritual counseling [] Bereavement support [] Provided bereavement packet [] Provided Bible/devotional materials [] Provided toy/stuffed animal, coloring book to patient or family member [] Provided Communion [] Anointing/[place] [] Salvation [x] Completed spiritual assessment [] Other: Impact on Illness or Injury [] Angry [] Fearful [] Anxious [] Often cries [] Exhaustion [] Unable to work [] Unable to attend scientologist [] Unable to walk/stand [] Unable to read [] Unable to drive [] Unable to eat/drink [] Unable to sleep [] Unable to be with family [] Patient intubated [] Other: Summary patient feeling stronger and more alert Time spent with patient 5 min
--- NOTE | 2020-07-17 11:28 | PM.PN ---
Subjective Subjective: Interval history: This morning patient was examined, she is alert oriented x3, answers all questions appropriate, no slurring of her speech, no facial droop, no visual deficits, no focal neurologic deficits, no motor deficits, no swallowing difficulties. She tells me she does not know what happened at the [facility], last incident she remembers is she was sitting on the bed, she does admit to drinking 2 beers that night, denies any chest pain, denies any shortness of breath, denies any lightheadedness, denies any dizziness, no nausea, no vomiting, no abdominal pain, no joint pains, her on the right side of her head, she does have abrasions that hurt a bit, overall she is doing well she feels Is quite paranoid in terms of what has happened to her stuff, although it is in the bed right beside her, how I know a lot of information about her, she is telling me how do I know Megan, how did I get Megan's information, how did her mom find out about her Vitals/I&O/Wt Last Vital Signs Temp 98.8 F 07/17/20 08:00 Pulse 78 07/17/20 10:00 Resp 23 H 07/17/20 10:00 BP 135/86 07/17/20 10:00 Pulse Ox 99 07/17/20 10:00 07/16/20 07/17/20 07/17/20 22:59 06:59 14:59 Intake Total 1440 / 2591.483 1220 / 3811.483 340 / 340 Output Total 1250 / 1250 1350 / 2600 Balance 190 / 1341.483 -130 / 1211.483 340 / 340 Weight last 48 hrs Weight 65.771 kg Physical Exam Const: COMMON NORMALS: no acute distress and patient oriented x3 HENMT: COMMON NORMALS: normocephalic HEAD & SCALP: normocephalic Neck/C-Spine: COMMON NORMALS: no JVD Resp: COMMON NORMALS: normal respiratory effort, No retractions, No use of accessory muscles and clear to auscultation bilaterally AUSCULTATION: clear to auscultation bilaterally Cardio: COMMON NORMALS: no JVD, regular rate, regular rhythm, S1 normal heart sound present and S2 normal heart sound present RATE: regular rate RHYTHM: regular rhythm HEART SOUNDS: S1 normal heart sound present and S2 normal heart sound present GI: COMMON NORMALS: Normal to inspection, nondistended, normoactive bowel sounds present, Soft to palpation, non-tender, No hepatosplenomegaly present, no masses and no bruits PALPATION: Yes Soft to palpation and Yes No hepatosplenomegaly present Extremity: COMMON NORMALS: capillary refill normal, no clubbing, cyanosis or edema, no calf tenderness and no pedal edema Neuro: COMMON NORMALS: patient oriented x3, CN's II-XII intact bilaterally, moves all extremities, no focal motor deficits and no sensory deficits noted COORDINATION/BALANCE: vpinyi-ej-epmt test normal and yohr-wg-wvty test normal COORDINATION: qsewuk-in-qcdz test normal and gscb-dg-hcir test normal Psych: COMMON NORMALS: mental status grossly normal Urinary Catheter Management^: Pantoja: Cath Placed During This Visit: yes Reason for Continuing Indwelling Catheter: Accurate Measurement of Urinary Output in Critically Ill Patients Urinary Catheter Date of Insertion: 07/15/20 Urinary Catheter Time of Insertion: 15:27 Data : 07/17/20 03:33 07/17/20 03:33 Micro: Microbiology 07/15/20 23:21 Blood Culture - Preliminary Blood NEGATIVE TO DATE 07/15/20 23:18 Blood Culture - Preliminary Blood NEGATIVE TO DATE 07/15/20 13:50 Gram Stain - Final Sputum - Endotracheal Tube Aspirate Sputum Culture - Preliminary A&P Assessment and plan (1) CVA (cerebral vascular accident): -No focal neurologic deficits, no slurring of her speech, no facial droop -Left-sided upper, and lower extremity weakness has significantly resolved -Was intubated in the ER, she could not protect her airway, extubated on 07/16/2020, saturating in the high 90s on room air -Megan [phone], mother has been in contact -Ct head Brain: Normal. No hemorrhage. Unremarkable white matter. No mass effect. Cerebral ventricles: No ventriculomegaly. Bones/joints: Unremarkable. No acute fracture. Paranasal sinuses: Visualized sinuses are unremarkable. No fluid levels. Mastoid air cells: Visualized mastoid air cells are well aerated. Soft tissues: There are right frontal and right periorbital abrasions with underlying soft tissue hematoma and emphysema. -cta head and neck shows: Right common carotid artery: No stenosis. No dissection or occlusion. Right internal carotid artery: No stenosis of the extracranial segment. No dissection or occlusion. Right external carotid artery: No occlusion or stenosis of the origin. Right vertebral artery: No stenosis. No dissection or occlusion. Left common carotid artery: No stenosis. No dissection or occlusion. Left internal carotid artery: No stenosis of the extracranial segment. No dissection or occlusion. Left external carotid artery: No occlusion or stenosis of the origin. Left vertebral artery: No stenosis. No dissection or occlusion. Bones/joints: No acute fracture. Soft tissues: There is an ET tube and NG tube in place. No significant soft tissue swelling. -Chest x-ray no focal pneumonia -CT cervical spine no acute fracture -EKG no acute ST-T wave changes, A. fib events -Neurologist at [facility] e contacted, by Dr. Lopez, as time of wellbeing was unknown, they cannot offer any thrombectomy or clot -Unfortunately cannot do an MRI as she has a neurostimulator in place -Mother does say that she abuses drugs, drinks alcohol -No evidence of tardive dyskinesia this morning, no ataxia, no lip smacking -For alcohol withdrawal, no significant tremor, no tachycardia, denies seeing or things that are not there, denies any anxiety or depression, denies shortness of breath -Ultimately the question is did she have a stroke? Her neurologic deficits have completely resolved, she likely had a transient ischemic attack if anything. More likely she hit her head, and passed out, and now is having mild to moderate concussion symptoms -She did have a akathsia, and some tardive dyskinesia symptoms yesterday, none currently PLAN: -Continue oxygen therapy as needed -Full code -Next of kin Pina, and now mom -Protonix -Sputum cultures, blood cultures, UA urine cultures -Stop Primaxin, switch to clindamycin -Stop fluids -Folic acid, B12, thiamine -[facility] protocol -Neurochecks -Head of bed elevation -Monitor for seizures -Start Cogentin for tardive dyskinesia -PT OT, speech therapy -Her echocardiogram did show mild diffuse hypokinesis of the septum, and anteroseptal segments, EF of 50%, grade 2 out of 4 diastolic dysfunction, no previous echocardiograms to compare to, EKG shows no acute ST-T wave changes, she denies any episodes of chest pain, denies shortness of breath. We will discharge her on aspirin, statin, with follow-up cardiology as outpatient in [place] -Patient does not want to go over to the psychiatric floor, she does not want to be admitted under the psych service, she is okay with Dr. Mckeon seeing her, will have Dr. Mckeon see her in case recommendations -Plan is discharging in the next 24 hours Status: Acute Qualifiers: CVA mechanism: unspecified Qualified Code(s): I63.9 - Cerebral infarction, unspecified (2) Psychosocial distress: Status: Acute (3) Adjustment disorder with anxiety: Status: Acute (4) AMS (altered mental status): Status: Acute Qualifiers: Altered mental status type: coma Coma depth: [place] coma 3-8 Coma timing: in the field (EMT or ambulance) Qualified Code(s): R40.2431 - [place] coma scale score 3-8, in the field [EMT or ambulance] (5) Greater saphenous vein embolism: -Superficial thrombus in the left greater saphenous vein below the knee -Risk factors include history of factor V Leiden, thrombus involving the greater saphenous vein -We will start anticoagulation with Xarelto for 45 days Status: Acute (6) Tardive dyskinesia: Status: Acute (7) Akathisia: Status: Acute (8) Alcohol abuse: Status: Acute (9) Concussion: Status: Acute Attestations Medical Necessity Statement*: Patient requires hospitalization for altered mental status likely TIA, concussion, likely discharge the next 24 to 48 hours Coding Level of Care Code Acute Quality Assurance Supervisor for [facility] Fwd Diagnoses CVA (cerebral vascular accident) I63.9 CVA mechanism: unspecified Psychosocial distress Z65.8 Adjustment disorder with anxiety F43.22 AMS (altered mental status) R40.2431 Altered mental status type: coma Coma depth: [place] coma 3-8 Coma timing: in the field (EMT or ambulance) Greater saphenous vein embolism I82.819 Tardive dyskinesia G24.01 Akathisia G25.71 Alcohol abuse F10.10 Concussion S06.0X9A
--- NOTE | 2020-07-17 12:57 | PM.DCS ---
Discharge Providers Date of Admission: 07/15/20 17:46 Date of Discharge: July 17, 2020 Attending Provider at Admission: Kvng Rapp MD Attending Provider at Discharge: Kvng Rapp MD Diagnoses at Discharge Discharge Diagnosis (1) CVA (cerebral vascular accident): Status: Acute Qualifiers: CVA mechanism: unspecified Qualified Code(s): I63.9 - Cerebral infarction, unspecified (2) Psychosocial distress: Status: Acute (3) Adjustment disorder with anxiety: Status: Acute (4) AMS (altered mental status): Status: Acute Qualifiers: Altered mental status type: coma Coma depth: [place] coma 3-8 Coma timing: in the field (EMT or ambulance) Qualified Code(s): R40.2431 - [place] coma scale score 3-8, in the field [EMT or ambulance] (5) Greater saphenous vein embolism: Status: Acute (6) Tardive dyskinesia: Status: Acute (7) Akathisia: Status: Acute (8) Alcohol abuse: Status: Acute (9) Concussion: Status: Acute Reason for Visit Reason for Visit: AMS Hospital Course Hospital Course Maddi Rudolph is a 50 year old female with a past medical history of adjustment disorder with anxiety, psychosocial distress, chronic back pain with a neurostimulator in place, currently homeless who presents to [facility] due to left-sided weakness and altered mental status. Patient on presentation, was not maintaining her airway, was admitted for acute respiratory failure, admitted to the ICU, successfully extubated, up to 2 L, eventually weaned to room air. There was concerns for aspiration event, aspiration pneumonia, kept on Primaxin, I have discharged the patient on clindamycin for 5 remaining days. For patient's left sided weakness, neurologic symptoms completely resolved, likely a transient ischemic attack, discharged on aspirin and statin, with close follow-up with primary care provider as outpatient Patient also had right forehead abrasion, and evidence of a concussion related to head trauma. Discussed to monitor for concussion-like symptoms, provided a handout on concussion, if she were to have symptoms go and see her primary care for intervention. For now she should avoid bright lights, watching TV, avoid screen time, allow for mental rest, avoid anything that causes symptomatology or is overstressing. She was also found to have a superficial DVT of the left greater saphenous vein below the knee, given her history of factor V Leiden, she is a intermediate to high risk, qualifies for anticoagulation. After discussion of the risks and benefits, she was standing, all questions answered, agreed to proceed with Xarelto 10 mg daily for 45 days. We will follow-up with the primary care provider as outpatient. If she were to have bloody or black stools, come back to the emergency room, or call 911. Repeat CBC in 1 week. -Her echocardiogram did show mild diffuse hypokinesis of the septum, and anteroseptal segments, EF of 50%, grade 2 out of 4 diastolic dysfunction, no previous echocardiograms to compare to, EKG shows no acute ST-T wave changes, she denies any episodes of chest pain, denies shortness of breath. We will discharge her on aspirin, statin, with follow-up cardiology as outpatient in [place] -For her alcohol withdrawal, [facility] protocol, advised to stop drinking alcohol, thiamine, folic acid, multivitamins -For her tardive dyskinesia, discharged on a short supply of Cogentin for tardive dyskinesia related symptoms Patient will be going back home to [facility], follow-up with cardiology, and outpatient physician there FOR TIA:No focal neurologic deficits, no slurring of her speech, no facial droop -Left-sided upper, and lower extremity weakness has significantly resolved -Was intubated in the ER, she could not protect her airway, extubated on 07/16/2020, saturating in the high 90s on room air -Megan [phone], and mother has been in contact with us -Ct head Brain: Normal. No hemorrhage. Unremarkable white matter. No mass effect. Cerebral ventricles: No ventriculomegaly. Bones/joints: Unremarkable. No acute fracture. Paranasal sinuses: Visualized sinuses are unremarkable. No fluid levels. Mastoid air cells: Visualized mastoid air cells are well aerated. Soft tissues: There are right frontal and right periorbital abrasions with underlying soft tissue hematoma and emphysema. -cta head and neck shows: Right common carotid artery: No stenosis. No dissection or occlusion. Right internal carotid artery: No stenosis of the extracranial segment. No dissection or occlusion. Right external carotid artery: No occlusion or stenosis of the origin. Right vertebral artery: No stenosis. No dissection or occlusion. Left common carotid artery: No stenosis. No dissection or occlusion. Left internal carotid artery: No stenosis of the extracranial segment. No dissection or occlusion. Left external carotid artery: No occlusion or stenosis of the origin. Left vertebral artery: No stenosis. No dissection or occlusion. Bones/joints: No acute fracture. Soft tissues: There is an ET tube and NG tube in place. No significant soft tissue swelling. -Chest x-ray no focal pneumonia -CT cervical spine no acute fracture -EKG no acute ST-T wave changes, A. fib events -Neurologist at [facility] were contacted, by Dr. Lopez, as time of wellbeing was unknown, they cannot offer any thrombectomy or clot retrieval -Unfortunately cannot do an MRI as she has a neurostimulator in place -Mother does say that she abuses drugs, drinks alcohol -No evidence of tardive dyskinesia this morning, no ataxia, no lip smacking -For alcohol withdrawal, no significant tremor, no tachycardia, denies seeing or things that are not there, denies any anxiety or depression, denies shortness of breath -Ultimately the question is did she have a stroke? Her neurologic deficits have completely resolved, she likely had a transient ischemic attack if anything. More likely she hit her head, and passed out, and now is having mild to moderate concussion symptoms -She did have a akathsia, and some tardive dyskinesia symptoms yesterday, none currently Physical Exam Const: COMMON NORMALS: no acute distress and patient oriented x3 GENERAL APPEARANCE: cooperative and comfortable HENMT: COMMON NORMALS: normocephalic HEAD & SCALP: normocephalic Eye: COMMON NORMALS: Equal, round and reactive pupils present, EOMs intact bilaterally and no papilledema GENERAL EYE: appearance normal, both eyes and all related structures PUPIL: Yes Equal, round and reactive pupils present DIRECT OPHTHALMOSCOPY: Yes no papilledema Neck/C-Spine: COMMON NORMALS: full ROM, no lymphadenopathy, no JVD and Thyroid normal THYROID: Thyroid normal Lymph: LYMPHATIC: no lymphadenopathy noted Resp: COMMON NORMALS: normal respiratory effort, No retractions, No use of accessory muscles and clear to auscultation bilaterally AUSCULTATION: clear to auscultation bilaterally Cardio: COMMON NORMALS: no JVD, regular rate, regular rhythm, S1 normal heart sound present, S2 normal heart sound present, No gallops present (Cardio), No clicks present (Cardio) and No murmurs present (Cardio) RATE: regular rate RHYTHM: regular rhythm HEART SOUNDS: S1 normal heart sound present and S2 normal heart sound present GI: COMMON NORMALS: Normal to inspection, nondistended, normoactive bowel sounds present, Soft to palpation, non-tender and No hepatosplenomegaly present PALPATION: Yes Soft to palpation and Yes No hepatosplenomegaly present Extremity: COMMON NORMALS: normal to inspection, full ROM and no pedal edema Neuro: COMMON NORMALS: patient oriented x3, CN's II-XII intact bilaterally, moves all extremities and no focal motor deficits Psych: COMMON NORMALS: mental status grossly normal, Normal thought process present and cooperative ATTITUDE: Yes paranoid MOOD & AFFECT: Yes anxious THOUGHT PROCESS: Normal thought process present Urinary Catheter Management^: Pantoja: Cath Placed During This Visit: yes Reason for Continuing Indwelling Catheter: Accurate Measurement of Urinary Output in Critically Ill Patients Urinary Catheter Date of Insertion: 07/15/20 Urinary Catheter Time of Insertion: 15:27 Discharge Data Data Completed and Pending: Completed Studies During Hospitalization Category Date Time Status CT angio headneck * 01710/[id number] Urge nt Cat Scan 07/15/20 16:[address] cervical spin wo con* [id number] Urge nt Cat Scan 07/15/20 13:[address] head wo con* 7 0450 Urgent Cat Scan 07/15/20 13:36 Completed XR chest 1V butch ble [id number] Stat Exams 07/15/20 16:34 Completed XR chest 1V butch ble [id number] Urgent Exams 07/15/20 13:36 Completed CV echo complete* [id number] Routine Ultrasound 07/16/20 20:21 [place] [id number] Routin e Ultrasound 07/16/20 20:21 Completed Pending at discharge Category Date Time Status Blood Culture Sta t Lab 07/15/20 23:21 Results Complete Blood Co unt w/Auto AM LABS Lab 07/18/20 04:00 Ordered Comprehensive Met abolic Panel AM LA BS Lab 07/18/20 04:00 Ordered Creatine Phosphok inase AM LABS Lab 07/18/20 04:00 Ordered Magnesium AM LABS Lab 07/18/20 04:00 Ordered Phosphorus AM LAB S Lab 07/18/20 04:00 Ordered Serum Drug Panel 7 Routine Lab 07/15/20 23:18 Received Labs from last 24 hours 12/09/0507/17/20 07/17/20 03:33 03:33 03:33 WBC 6.4 RBC 3.65 L Hgb 11.2 L Hct 35.3 L MCV 96.7 MCH 30.7 MCHC 31.7 RDW 12.6 Plt Count 236 MPV 9.8 Neut % (Auto) 59.7 Lymph % (Auto) 30.1 [place] % (Auto) 7.4 Eos % (Auto) 2.2 Baso % (Auto) 0.3 Neut # (Auto) 3.80 Lymph # (Auto) 1.9 [place] # (Auto) 0.5 Eos # (Auto) 0.1 Baso # (Auto) 0.0 Nucleated RBC % (a uto) 0 Nucleated RBCs # 0.0 Sodium 143 Potassium 3.1 L Chloride 106 Carbon Dioxide 25 Anion Gap 15.1 BUN 7 Creatinine 0.5 GFR Calculation 130.6 H Glucose 90 Calculated Osmolal ity 294 Calcium 8.8 Phosphorus 3.2 Magnesium 2.0 Total Bilirubin 0.6 AST 11 ALT 11 Alkaline Phosphata se 86 Creatine Kinase 39 Total Protein 5.9 L Albumin 3.8 Globulin 2.1 Vitals: Last Vital Signs Temp 98.7 F 07/17/20 12:00 Pulse 84 07/17/20 12:00 Resp 21 H 07/17/20 11:00 BP 135/83 07/17/20 12:00 Pulse Ox 96 07/17/20 12:00 Discharge Plan Discharge Patient Disposition: Home Condition: Stable Prescriptions: New atorvastatin 40 mg Tablet 40 mg PO BEDTIME 30 Days Qty: 30 RF: 0 benztropine 1 mg Tablet 0.5 mg PO Q12H PRN (Reason: Extrapyramidal Symptom) 15 Days Qty: 30 RF: 0 cyanocobalamin (vitamin B-12) [Vitamin B-12] 1,000 mcg Tablet 1,000 mcg PO DAILY 30 Days Qty: 30 RF: 0 folic acid 1 mg Tablet 1 mg PO DAILY 30 Days Qty: 30 RF: 0 thiamine mononitrate (vit B1) [Vitamin B-1 (mononitrate)] 100 mg Tablet 100 mg PO DAILY 30 Days Qty: 30 RF: 0 Xarelto 10 mg Tablet 10 mg PO DAILY 45 Days Qty: 45 RF: 0 clindamycin HCl 150 mg Capsule 600 mg PO Q8H 5 Days Qty: 60 RF: 0 aspirin 81 mg Tablet,Chewable 81 mg PO DAILY 30 Days Qty: 30 RF: 0 Thera 400 mcg Tablet 1 tab PO DAILY 30 Days Qty: 30 RF: 0 Continued sumatriptan succinate 25 mg tablet 25 mg PO PRN Qty: 10 RF: 0 olanzapine 2.5 mg tablet 2.5 mg PO BEDTIME Qty: 30 RF: 0 baclofen 20 mg tablet 20 mg PO QID PRN (Reason: Muscle Spasm) Qty: 30 RF: 0 duloxetine 60 mg capsule,delayed release(DR/EC) 120 mg PO DAILY Qty: 60 RF: 0 pregabalin 150 mg capsule 150 mg PO TID Qty: 90 RF: 0 Discontinued tramadol 50 mg tablet 50 mg PO Q6H PRN (Reason: Pain) Qty: 10 RF: 0 furosemide 20 mg tablet See Rx Instructions .ROUTE .COMPLEX Qty: 30 RF: 0 Discharge Orders: Discharge Order (Routine); Ordered 07/17/20 Ordered By: Kvng Rapp Discharge Diet: Cardiac Discharge Activity: Resume usual activity Patient Instructions: Clindamycin (On the skin), Clindamycin (By mouth), Aspirin (By mouth), Thiamine (Vitamin B-1) (By mouth), Folic Acid (By mouth), Benztropine Mesylate (By mouth), Vitamin B-12 (Cyanocobalamin) (By mouth), Vitamin D (By mouth), Rivaroxaban (By mouth), Heart Healthy Diet, Superficial Thrombophlebitis (GEN), Concussion (DC), Abuse of Alcohol (GEN), TIA Activity Restrictions/Additional Instructions: -For greater saphenous vein, superficial thrombus, left greater greater saphenous vein Xarelto 10 mg daily for 45 days -For transient ischemic attack aspirin and statin -Please avoid alcohol use -Vitamins as prescribed -Please follow-up with your general physician in 1 to 2 weeks -Follow-up with cardiology in 1 month -If you have chest pain, shortness of breath go to the emergency room or call 911 Discharge Attestations Time Spent in Discharge Care*: less than 30 min Quality Metrics Clinical Quality Measures During this hospital stay, did patient experience: Stroke Contraindication to Antithrombotic: Antithrombotic prescribed Contraindication to Anticoagulation: Anticoagulation prescribed Contraindication to Statin: Statin prescribed and None Coding Level of Care Code Acute Detective Bureau Chief for [facility] Fwd Exam Comprehensive Diagnoses CVA (cerebral vascular accident) I63.9 CVA mechanism: unspecified Psychosocial distress Z65.8 Adjustment disorder with anxiety F43.22 AMS (altered mental status) R40.2431 Altered mental status type: coma Coma depth: [place] coma 3-8 Coma timing: in the field (EMT or ambulance) Greater saphenous vein embolism I82.819 Tardive dyskinesia G24.01 Akathisia G25.71 Alcohol abuse F10.10 Concussion S06.0X9A
--- NOTE | 2020-07-17 15:01 | PC.NURSE ---
PT lacy removed. 10 ml removed with syringe. Pt tolerated well.
--- NOTE | 2020-07-17 15:48 | PM.NHP ---
Providers/Chief Complaint Admitting Physician: Kvng Rapp MD Chief Complaint: AMS HPI NPU History of Present Illness Antonietta Rudolph is a 50 year old female who presented to the emergency department with the following report: Chief Complaint: Altered Mental Status Stated Complaint: AMS Time Seen by Provider: 07/15/20 12:46 Source: EMS Mode of arrival: EMS Limitations: altered mental status History of Present Illness: HPI narrative: This 50-year-old female is unresponsive and unable to give me history. From what I can gather from EMS the patient was found unresponsive by a neighbor earlier today. They thought that she may have been drinking last night. She apparently has a history of alcohol abuse. When she was found today she had a cut on her head was not responding, and so was brought to the emergency department for evaluation. I was unable to obtain more history than this. She was admitted to the ICU for definitive treatment of those issues. She was extubated yesterday and today endorsing a readiness to go home and telling a somewhat disjointed story. She was admitted a few days ago and discharged with a plan of ultimately heading back to [facility]. But apparently there was some CVA/loss of consciousness event letter being to the emergency department, transferred to the ICU and given her recent discharge from the NPU a psychiatric consult was requested. She reports a history of psychiatric care going back many years but reports at times she has been negligent in continuing the care she does report however recent interactions with her treatment team as she has struggled in the past few months. She has had some issues with trauma and relationships in the past and really has had some issues requiring psychiatric intervention. She reports that she desires to return back to [facility] and contract for safety. We were able to reach out to her contacts and get their information on her and identified there comfort level with her being discharged. We reviewed her 07/12/2020 inpatient eval and an excerpt is included below for historical relevance. Per her 07/12/2020 [facility] [place]: History of Present Illness ANTONIETTA RUDOLPH is a 50 year old female who was brought to the emergency room by police. We have no documentation of what exactly occurred. According to the patient, she was sleeping in her car at a gas station where she was told she could do that. Through a very confusing series of events, her car was towed, her purse was in her car, her phone was in her car, and the police brought her to the emergency room for unclear reasons. She denies suicidal or homicidal ideation. She says that she is treated for stress and anxiety and is having muscle cramping. Otherwise she is negative for symptoms of depression or psychosis. Oh, can I get my Adderall? Patient's urine drug screen was negative for amphetamines. ER physician documentation: Patient is a 50-year-old female who was brought in by EMS. EMS was called and by law enforcement to evaluate this lady. She is from out of town and followed her girlfriend here. She is apparently homeless and came here from [place]. She was found sleeping in an abandoned car at the [place]. She feels she is dehydrated. She has not been drinking water as much as she should. She is also feeling a little depressed but denies suicidal or homicidal ideation. She denies a fever. No urinary symptoms Past psychiatric history: It should be noted that the patient is not a reliable informant and we have no records on her. She says that she has been hospitalized twice for mental health reasons in her life. The last was 2 weeks ago in [facility]. She was hospitalized for stress, anxiety, and burnout. She has been treated for depression with Cymbalta for several years and it is helpful. She denies side effects and wants to continue this medication. Please see mental status exam below. Social history: Patient is incredibly vague. She answers questions but the answers are of minimal help. She is from [facility]. She first says she works at a [employer] shop and then she says she is disabled for spine and back problems. She has family in [facility] but they cannot help her in this situation so she does not feel there is any point in contacting them. She was going to visit friends here in the [place] area but she cannot remember their phone number and cannot seem to recall the names. Meds NPU Home Medications Medication Instructions Recorded Confirmed Last Taken Type baclofen 20 mg PO QID PRN #30 tab 07/13/20 07/15/20 Unknown Rx duloxetine 120 mg PO DAILY #60 cap 07/13/20 07/15/20 Unknown Rx olanzapine 2.5 mg PO BEDTIME #30 tab 07/13/20 07/15/20 07/09/20 Rx pregabalin 150 mg PO TID #90 cap 07/13/20 07/15/20 Unknown Rx sumatriptan succinate 25 mg PO PRN #10 tab 07/13/20 07/15/20 Unknown Rx aspirin 81 mg PO DAILY 30 Days #30 tab 07/17/20 Unknown Rx atorvastatin 40 mg PO BEDTIME 30 Days #30 tab 07/17/20 Unknown Rx cyanocobalamin (vitamin B-12) 1,000 mcg PO DAILY 30 Days #30 tab 07/17/20 Unknown Rx [Vitamin B-12] folic acid 1 mg PO DAILY 30 Days #30 tab 07/17/20 Unknown Rx multivitamin with folic acid 1 tab PO DAILY 30 Days #30 tab 07/17/20 Unknown Rx [Thera] rivaroxaban [Xarelto] 10 mg PO DAILY 45 Days #45 tab 07/17/20 Unknown Rx thiamine mononitrate (vit B1) 100 mg PO DAILY 30 Days #30 tab 07/17/20 Unknown Rx [Vitamin B-1 (mononitrate)] Allergies Allergy/AdvReac Type Severity Reaction Status Date / Time cephalexin [From Keflex] Allergy ALGY-Hives Verified 07/11/20 14:23 Penicillins Allergy ALGY-Hives Verified 07/11/20 14:23 PFSH NPU PFSH: Medical History Adjustment disorder with anxiety Homeless Psychosocial distress Mental Status Exam MSE Comments: This is a well-nourished well-developed white female with adequate dress grooming and eye contact. No abnormal movements. Cooperative with exam in no acute distress. Speech is normal rate and volume, mood is normal rate and volume. mood described as better, affect congruent. Thought process organized. Thought content: Patient denied suicidal Fran Ryan, there were no delusions reported or noted, she denied any auditory visual hallucinations. Attention and concentration were intact and memory mostly reliable but none were formally tested. She alert and oriented x3. Insight and judgment were fair, impulse control was fair. Vitals/I&O/Wt Last Vital Signs Temp 98.7 F 07/17/20 12:00 Pulse 84 07/17/20 12:00 Resp 21 H 07/17/20 11:00 BP 135/83 07/17/20 12:00 Pulse Ox 96 07/17/20 12:00 07/17/20 07/17/20 07/17/20 06:59 14:59 22:59 Intake Total 1220 / 3811.483 2040 / 2040 Output Total 1350 / 2600 1200 / 1200 600 / 1800 Balance -130 / 1211.483 840 / 840 -600 / 240 Physical Exam Urinary Catheter Management^: Pantoja: Cath Placed During This Visit: yes, but has since been removed by the nurse Reason for Continuing Indwelling Catheter: Decision to DC Catheter Urinary Catheter Date of Insertion: 07/15/20 Urinary Catheter Time of Insertion: 15:27 Date Urinary Catheter Removed: 07/17/20 Time Urinary Catheter Discontinued: 14:55 Data NPU : 07/17/20 03:33 07/17/20 03:33 Micro: Microbiology 07/15/20 13:50 Gram Stain - Final Sputum - Endotracheal Tube Aspirate Sputum Culture - Final 07/15/20 23:21 Blood Culture - Preliminary Blood NEGATIVE TO DATE 07/15/20 23:18 Blood Culture - Preliminary Blood NEGATIVE TO DATE Microbiology 07/15/20 13:50 Sputum - Endotracheal Tube Aspirate Gram Stain - Final 07/15/20 13:50 Sputum - Endotracheal Tube Aspirate Sputum Culture - Final 07/15/20 23:21 Blood Blood Culture - Preliminary NEGATIVE TO DATE 07/15/20 23:18 Blood Blood Culture - Preliminary NEGATIVE TO DATE A&P Assessment and plan (1) Concussion: Status: Acute (2) Alcohol abuse: Status: Acute (3) Psychosocial distress: Status: Acute (4) Adjustment disorder with anxiety: Status: Acute Additional A&P Information This is a 50-year-old white female with a long history of alcohol use, depression and anxiety who presented a few days after discharge from inpatient hospital with an apparent seizure or syncopal event as she was found unresponsive in a motel room. 1. Continue current medication. 2. Evaluated and no credible lethality present. 3. No indication for 96-hour hold and patient we have voluntary and is not interested in inpatient services. 4. Recommend returning to outpatient services in her home state. Involuntary Hold Information 96 Hour Hold: 96 Hour Involuntary Admission: No Attestations NPU Medical Necessity Statement*: N/A. Please see primary team note for medical necessity. No need for inpatient psychiatric services identified. Coding Level of Care Code Acute [employer] for [employer] Diagnoses Concussion S06.0X9A Alcohol abuse F10.10 Psychosocial distress Z65.8 Adjustment disorder with anxiety F43.22
[2020-07-19 14:23] LABS: Amphetamine negative; Barbiturates negative; Benzodiazepines negative; Cocaine Metabolites negative; Marijuana(Tetrahydrocannabino) negative; Opiates negative; PCP (Phencyclidine) negative
== END 2020-07-17 18:07 | disposition home or self-care (01) | DRG 208 ==
LOC: ER 17:53 → ICU 18:04
PROVIDERS: Admitting Provider Family Medicine; Emergency Provider Family Medicine; Visit Provider Family Medicine
DX: J96.00 Acute respiratory failure, unspecified whether with hypoxia or hypercapnia (principal); J69.0 Pneumonitis due to inhalation of food and vomit; G45.9 Transient cerebral ischemic attack, unspecified; I82.492 Acute embolism and thrombosis of other specified deep vein of left lower extremity; D68.51 Activated protein C resistance; F43.22 Adjustment disorder with anxiety; Z96.82 Presence of neurostimulator; Z59.0 Homelessness; R41.82 Altered mental status, unspecified; G24.01 Drug induced subacute dyskinesia; G25.71 Drug induced akathisia; F10.10 Alcohol abuse, uncomplicated; G89.29 Other chronic pain; M54.9 Dorsalgia, unspecified
CPT/HCPCS: 12345; 31500; 36415; 36600; 51702; 70450; 70496; 70498; 71045; 72125; 80051; 80053; 80061; 80306; 80307; 81001; 82140; 82330; 82550; 82728; 82803; 82805; 83036; 83605; 83735; 83880; 84100; 84145; 84146; 84443; 84484; 84703; 85025; 85378; 85384; 85610; 85651; 85730; 86140; 87040; 87070; 87205; 87426; 92523; 92610; 93005; 93306; 93970; 94002; 94003; 94799; 96372; 96375; 97116; 97161; 97166; 97530; 97535; 99283; A4570; C9113; J0330; J0743; J1170; J1650; J2704; J3010; J3411; J3490; J7030; Q9967